=== PATIENT | female | born 1990 | race Caucasian/White ===

== ENCOUNTER 2023-10-01 09:46 | Emergency (ER) | payer OTHER, SELFPAY ==
[2023-10-01 09:52] VITALS: BP 119/78
--- NOTE | 2023-10-01 12:29 | ED.GENMED ---
History of Present Illness
General
Chief Complaint: Breathing Problem
Source: patient
Exam Limitations: none
Time Seen by Provider: 10/01/23 12:05
Nursing documentation reviewed up to this point in time: agreed with
Travel History
Have you had any contact with someone who has COVID-19?: No
Do you have any symptoms of coronavirus? Fever > 100 degrees, chills, cough, shortness of breath, sore throat, loss of taste or smell, muscle aches, or headache?: No
History of Present Illness
History of Present Illness:
Patient to ED with complaint of fever, chills, SOB, CP since 3AM . Denies n/v/d. No cough. States she has completed 3 nebulizer treatments today without improvement. Brought self to ED for eval.
Past History
Past History
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
ED Past Surgical History: Orthopedic (Left ankle surgery), Tonsilectomy and Other (Iliac stent left)
Social History
Tobacco: Non-smoker
Alcohol: Occasional
Drug: None
Personal: Single
Living: alone
Employment: Employed
Family History
Family History: Other (Noncontributory)
Review of Systems
Review of Systems
Allergies reviewed?: Yes
All Other Systems: ROS reviewed and negative except as documented in HPI and ROS
Constitutional: Reports fever, fatigue and chills
EENT: Reports no symptoms
Respiratory: Reports trouble breathing
Cardiac: Reports chest pain
ABD/GI: Reports no symptoms
: Reports no symptoms
Musculoskeletal: Reports no symptoms
Skin: Reports no symptoms
Neurological: Reports weakness
Psychiatric: Reports no symptoms
Phy Exam
General Physical Exam
General Presentation: well appearing and no apparent distress
General age: appears stated age
General Skin: warm and dry
General Habitus: normal
General Mental: alert
Cardiovascular Exam
Cardiovascular Exam: regular rate/rhythm and no edema
Pulmonary Exam
Pulmonary Exam: lungs clear, no respiratory distress and chest non tender
Musculoskeletal Exam
Musculoskeletal Exam: full ROM and neuro vasc intact
Skin Exam
Skin Exam: normal color, warm/dry and no rash
Psychiatric Exam
Psychiatric Exam: normal mood/affect
Course
Orders/Labs/Results
Orders:
Orders
10/01/23 12:27
Electrocardiogram (*1) Urgent
Reason for Study: Chest Pain
EKG- Treatment ONCE
CR Chest - 2 Views Urgent
Comment:
Reason For Exam: SOB
10/01/23 12:28
0.9% Sodium Chloride 1000 ml [Nss] 1,000 ml IV BOLUS
10/01/23 12:52
COVID-19 Antigen Urgent
Source: Nasal Swab
Complete Blood Count/With Diff Urgent
Comprehensive Metabolic Panel Urgent
Troponin I Urgent
Influenza A+B Rapid Molecular Urgent
[facility] Source: Nasal Swab
Specimen Description:
10/01/23 14:08
RSV [Respiratory Syncytial Virus] Urgent
[facility] Source: Nasalpharynx
Specimen Description:
Date Specimen was Collected: 10/01/23
Time Specimen was Collected: 14:07
Abnormal Lab Results
10/01/23
12:52
WBC 15.6 H 10^3/uL
(4.8-10.8)
Abs Immat Gran (auto) 0.1 H 10^3/uL
(0-0.05)
Absolute Neuts (auto) 12.8 H 10^3/uL
(1.4-6.5)
Absolute Monos (auto) 1.2 H 10^3/uL
(0.1-0.6)
Neutrophils % 82.3 H %
(42.2-75.2)
Lymphocytes % 9.2 L %
(20.5-51.1)
Total Bilirubin 2.1 H mg/dl
(0.2-1.3)
10/01/23 12:52
10/01/23 12:52
Vital Signs
Initial and Last Documented VS:
Initial Vital Signs
Temp Pulse Resp BP Pulse Ox
98.9 F 115 18 119/78 97
10/01/23 09:52 10/01/23 09:52 10/01/23 09:52 10/01/23 09:52 10/01/23 09:52
Last Documented Vital Signs
Temp Pulse Resp BP Pulse Ox
98.9 F 101 29 110/68 95
10/01/23 12:56 10/01/23 15:00 10/01/23 15:00 10/01/23 15:00 10/01/23 15:00
*Radiology
Radiology exam reviewed: radiology read reviewed
*Pulse Oximetry
Patient hypoxic: no
*EKG
Interpretation: normal
Rate: normal
Rhythm: sinus
*Critical Care Note
Total Time (30-74mins, 75-104mins- exclusive of procedures): Not Applicable
Update Note
Update Note:
Labs, cxr, ekg reviewed with patient. No concerning findings on exam. PUlse ox remains at 99% RA. Patient is discharged home and will follow up with PCP in AM
ED Attending Note
-
Portions of this chart may have been created with voice recognition software.� Occasional wrong word or��sound alike� substitutions may have occurred due to the inherent limitations of voice recognition software.
Discharge Plan
Departure
Patient Disposition: Home (Routine Discharge)
Date of Disposition: 10/01/23
Time of Disposition: 15:03
Patient with high blood pressure during this ER visit?: No
Condition: Good
Covid-19: Not Applicable
Discharge Problem:
Shortness of breath
Instructions: Shortness of Breath (Dyspnea) (DC)
Prescriptions:
No Action
Ubrelvy 100 mg Tablet
100 mg PO .3X WEEKLY PRN (Reason: migraine)
Mirena 21 mcg/24 hours (8 yrs) 52 mg Intrauterine Device
1 device INTRAUTERINE ONCE
gabapentin 600 mg Tablet
600 mg PO TID
ipratropium-albuterol 0.5 mg-3 mg(2.5 mg base)/3 mL Solution For Nebulization
3 ml INHALATION R Q4 PRN (Reason: sob/wheezing)
famotidine 40 mg Tablet
40 mg PO HS
clopidogrel [Plavix] 75 mg Tablet
75 mg PO DAILY
tramadol 50 mg Tablet
50 mg PO Q4H PRN (Reason: moderate pain)
Patient Comments:
02/06/2023: last filled 12/21/21, 35 tabs [facility] days [facility]
ondansetron 8 mg Tablet,Disintegrating
8 mg PO Q8H PRN (Reason: nausea)
lorazepam 0.5 mg Tablet
0.5 mg PO TID
Patient Comments:
02/24/2023: last filled 02/20/23, 30 tabs for 30 days from [facility]
pantoprazole 40 mg Tablet,Delayed Release (Dr/Ec)
40 mg PO DAILY
vitamin B complex Capsule
1 cap PO HS
escitalopram oxalate [Lexapro] 20 mg Tablet
20 mg PO DAILY
eletriptan 40 mg Tablet
40 mg PO . DIRECTED PRN (Reason: headache)
Rx Instructions:
TAKE 1 TABLET NEEDED FOR HEADACHE MAY REPEAT AFTER 2 HOUR MAX, 1 TAB TWICE A DAY, 3 TIMES PER WEEK
coQ10 (ubiquinol) 200 mg Capsule
300 mg PO HS
Xarelto 20 mg Tablet
20 mg PO DAILY
multivitamin Tablet
1 tab PO DAILY
ferrous sulfate 325 mg (65 mg iron) Tablet
325 mg PO DAILY
ergocalciferol (vitamin D2) 1,250 mcg (50,000 unit) capsule
1,250 mcg PO FR
Rx Instructions:
pt mention takes med at hs
calcium carb-mag ox-zinc sulf 333-133-5 mg Tablet
3 tab PO HS
Flovent Diskus 100 mcg/actuation blister with device
1 inh inhalation R BID
Linzess 72 mcg Capsule
72 mcg PO DAILY
metformin 500 mg tablet
1,000 mg PO BID@0800,1700
prednisone 10 mg tablet
10 mg PO DIRECTED Qty: 100 0RF
Rx Instructions:
40mg for 2 days
30 mg for 2 days
20 mg for 2 days
10mg until seen by rheumatology
midodrine 5 mg Tablet
5 mg PO BID
propranolol 10 mg Tablet
10 mg PO BID
levofloxacin 500 mg Tablet
500 mg PO DAILY
aripiprazole [Abilify] 5 mg Tablet
5 mg PO DAILY
Qulipta 60 mg Tablet
60 mg PO DAILY
Referrals:
Brennon Pierce MD [Family Provider] - Tomorrow
Stand Alone Forms: Return to Work
Activity Restrictions/Additional Instructions:
Return to the emergency department immediately for any changes in/worsening of your symptoms.
Interventions
Interventions:
*Risk Screen - Suicide Last Done: 10/01/23 09:52
*General Assessment Last Done: 10/01/23 12:32
*Neglect/Abuse Screening Last Done: 10/01/23 09:52
ED- Fall Risk Assessment Last Done: 10/01/23 12:56
*ED COVID-19 Vaccine History Last Done: 10/01/23 09:52
ED- Cardiac Assessment Last Done: 10/01/23 12:55
ED- Pulmonary Assessment Last Done: 10/01/23 12:55
[2023-10-01 12:32] VITALS: BMI 37.0
[2023-10-01 12:35] VITALS: BP 94/60
[2023-10-01] MEDS: NSS 1000 IV (12:50)
[2023-10-01 13:00] LABS: % Basophils 0.3 % (0-2); % Eosinophils 0.4 % (0-6); % Immature Granulocytes 0.4 % (0-0.5); % Lymphocytes 9.2 % (20.5-51.1); % Monocytes 7.4 % (1.7-9.3); % Neutrophils 82.3 % (42.2-75.2); Absolute Eosinophils 0.1 10^3/uL (0-0.7); Absolute Immature Granulocytes 0.1 10^3/uL (0-0.05); Absolute Lymphocytes 1.4 10^3/uL (1.2-3.4); Absolute Monocytes 1.2 10^3/uL (0.1-0.6); Absolute Neutrophils 12.8 10^3/uL (1.4-6.5); Hematocrit 37.8 % (37.0-47.0); Mean Corp Hgb Conc. 34.4 g/dL (33.0-37.0); Mean Corpuscular Hgb 28.2 pg (27.0-31.0); Mean Platelet Volume 9.1 fL (7.4-10.4); Nucleated Red Blood Cells % 0 %; Platelet Count 320 10^3/uL (130-400); Red Blood Cell Count 4.61 10^6/uL (4.20-5.40); Red Cell Dist. Width 13.3 % (11.5-14.5); White Blood Cell Count 15.6 10^3/uL (4.8-10.8)
[2023-10-01 13:18] LABS: ALT (SGPT) 13 U/L (0-35); AST (SGOT) 20 U/L (14-36); Albumin 3.7 g/dl (3.5-5.0); Alkaline Phosphatase 101 U/L (38-126); Blood Urea Nitrogen 14 mg/dl (7-17); Calcium 8.9 mg/dl (8.4-10.2); Carbon Dioxide 27 mmol/L (22-30); Chloride 101 mmol/L (98-107); Estimated Creatinine Clearance > 125 ml/min; Glucose 90 mg/dl (70-99); Potassium 3.7 mmol/L (3.5-5.1); Sodium 137 mmol/L (135-145); Total Bilirubin 2.1 mg/dl (0.2-1.3); Total Protein 6.4 g/dl (6.3-8.2); eGFR > 60.00
[2023-10-01 13:24] LABS: COVID-19 Antigen Negative (Negative)
[2023-10-01 13:29] LABS: Troponin I < 0.012 ng/ml
[2023-10-01 14:00] VITALS: BP 97/63
[2023-10-01 15:00] VITALS: BP 110/68
== END 2023-10-01 15:15 | disposition home or self-care (01) ==
LOC: EMR 09:46
PROVIDERS: Nurse Practitioner; EMERGENCY PHYSICIAN Emergency Medicine; FAMILY PHYSICIAN Family Medicine
DX: R06.02 Shortness of breath (principal); R50.9 Fever, unspecified; R53.83 Other fatigue; R07.9 Chest pain, unspecified; R53.1 Weakness; Z11.52 Encounter for screening for COVID-19
CPT/HCPCS: 99285; 96360; 71046; 80053; 84484; 85025; 87502; 87807; 87811; 93005

== ENCOUNTER 2023-12-01 16:38 | Emergency (ER) | payer BC, SELFPAY ==
[2023-12-01 16:44] VITALS: BP 119/82
[2023-12-01 17:03] LABS: % Basophils 0.4 % (0-2); % Eosinophils 1.7 % (0-6); % Immature Granulocytes 0.4 % (0-0.5); % Lymphocytes 30.4 % (20.5-51.1); % Monocytes 6.9 % (1.7-9.3); % Neutrophils 60.2 % (42.2-75.2); Absolute Eosinophils 0.2 10^3/uL (0-0.7); Absolute Lymphocytes 3.1 10^3/uL (1.2-3.4); Absolute Monocytes 0.7 10^3/uL (0.1-0.6); Absolute Neutrophils 6.1 10^3/uL (1.4-6.5); Hematocrit 39.8 % (37.0-47.0); Hemoglobin 13.8 g/dL (12.0-16.0); Mean Corp Hgb Conc. 34.7 g/dL (33.0-37.0); Mean Corpuscular Hgb 28.4 pg (27.0-31.0); Mean Corpuscular Volume 81.9 fL (81.0-99.0); Mean Platelet Volume 9.3 fL (7.4-10.4); Nucleated Red Blood Cells % 0 %; Platelet Count 344 10^3/uL (130-400); Red Blood Cell Count 4.86 10^6/uL (4.20-5.40); Red Cell Dist. Width 13.4 % (11.5-14.5); White Blood Cell Count 10.1 10^3/uL (4.8-10.8)
[2023-12-01 17:17] LABS: HCG, Serum Qualitative Screen Negative
[2023-12-01 17:20] LABS: ALT (SGPT) 32 U/L (0-35); AST (SGOT) 33 U/L (14-36); Albumin 4.4 g/dl (3.5-5.0); Alkaline Phosphatase 118 U/L (38-126); Blood Urea Nitrogen 16 mg/dl (7-17); Calcium 9.1 mg/dl (8.4-10.2); Carbon Dioxide 28 mmol/L (22-30); Chloride 105 mmol/L (98-107); Glucose 109 mg/dl (70-99); Potassium 3.6 mmol/L (3.5-5.1); Sodium 137 mmol/L (135-145); Total Bilirubin 1.8 mg/dl (0.2-1.3); Total Protein 7.5 g/dl (6.3-8.2); eGFR > 60.00
[2023-12-01 17:31] LABS: Troponin I < 0.012 ng/ml
--- NOTE | 2023-12-01 18:36 | ED.GENMED ---
History of Present Illness
General
Chief Complaint: Chest Pain
Source: patient
Time Seen by Provider: 12/01/23 18:25
Travel History
Have you had any contact with someone who has COVID-19?: No
Do you have any symptoms of coronavirus? Fever > 100 degrees, chills, cough, shortness of breath, sore throat, loss of taste or smell, muscle aches, or headache?: No
History of Present Illness
History of Present Illness:
33-year-old female with past medical history of migraines, PE, DVT, May Thurner syndrome, type 2 diabetes, unspecified chest pain presenting to the emergency department for evaluation of chest pain described to be sternal radiating towards the left
breast, aching sensation, constant without any exacerbating or alleviating factors accompanied with headache and sensation of lightheadedness that all began around 1 PM and has been pretty persistent. Patient notes that she is currently scheduled
to undergo a workup with cardiology for a stress test and MRI of the heart within the coming month for this unspecified chest pain. Patient is on both Plavix and Xarelto due to her cardiopulmonary history. She notes that she attempted her usual
migraine medications but without any relief. Denies any fevers or recent illnesses, no other new or different symptoms than her usual chronic conditions.
Past History
Past History
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
ED Past Surgical History: Orthopedic (Left ankle surgery), Tonsilectomy and Other (Iliac stent left)
Social History
Tobacco: Non-smoker
Alcohol: Occasional
Drug: None
Personal: Single
Living: alone
Employment: Employed
Family History
Family History: Other (Noncontributory)
Review of Systems
Review of Systems
All Other Systems: ROS reviewed and negative except as documented in HPI and ROS
Phy Exam
Physical Exam
Physical Exam:
GENERAL: Alert , in no apparent distress
EYE: clear conjunctiva b/l
HEAD: NCAT
Neck: Supple, no meningismus
ENT: o/p clr, mmm.
CARDIAC: Regular rate and rhythm, no murmur.
LUNGS: Clear breath sounds bilaterally, no acute respiratory distress, no wheezes/rales/rhonchi, no chest wall tenderness
ABDOMEN: Soft, without focal tenderness, no r/g, no cvat
NEUROLOGICAL: Alert and oriented
SKIN: Warm and dry, skin intact.
MUSCULOSKELETAL: No edema, well perfused.
PSYCH: Normal and appropriate interaction.
Scores
Heart Failure Risk
Heart Failure Risk Score: Not Applicable
Heart Score for Chest Pain Patients
STEMI patient?: No
History: Slightly or Non-Suspicious
ECG: Normal
Age: </= 45 years
Risk Factors: No Risk Factors
Troponin: </= Normal Limit
Heart Score for Chest Pain Patients: 0
Heart Score Risk: 2.5% MACE over next 6 weeks
Withdrawal Assessment of Alcohol
Withdrawal Assessment Completed?: Not applicable
Course
Orders/Labs/Results
Orders:
Orders
12/01/23 16:46
Electrocardiogram (*1) Urgent
Reason for Study: Chest Pain
EKG- Treatment ONCE
Test Result ONCE
12/01/23 16:54
Complete Blood Count/With Diff Urgent
Comprehensive Metabolic Panel Urgent
HCG, Serum Qualitative Screen Urgent
Troponin I Urgent
12/01/23 18:35
0.9% Sodium Chloride 1000 ml [Nss] 1,000 ml IV BOLUS
Diphenhydramine [Benadryl] 25 mg IV NOW STA
Metoclopramide [Reglan] 10 mg IV NOW STA
Abnormal Lab Results
12/01/23
16:54
Absolute Monos (auto) 0.7 H 10^3/uL
(0.1-0.6)
Glucose 109 H mg/dl
(70-99)
Total Bilirubin 1.8 H mg/dl
(0.2-1.3)
12/01/23 16:54
12/01/23 16:54
Vital Signs
Initial and Last Documented VS:
Initial Vital Signs
Temp Pulse Resp BP Pulse Ox
98.6 F 85 18 119/82 97
12/01/23 16:44 12/01/23 16:44 12/01/23 16:44 12/01/23 16:44 12/01/23 16:44
Last Documented Vital Signs
Temp Pulse Resp BP Pulse Ox
98.6 F 82 26 115/62 97
12/01/23 16:44 12/01/23 20:00 12/01/23 20:00 12/01/23 18:42 12/01/23 20:00
MDM/Problems Addressed
Differential Diagnosis Includes:
Acute on chronic chest pain but less concern for ACS, POTS, migraine, less concern for infectious etiology, I do not have concern for PE given patient is hemodynamically stable and already anticoagulated both Plavix and Xarelto
MDM/Problems Addressed:
33-year-old female presenting emergency department for evaluation of chest pain but also noted migraine headache. Overall patient's symptoms do not seem to be suggestive of ACS however given her right abnormal medical history combined with her
unspecified etiology for her chest pain will perform chest pain workup. Labs were initiated from triage and show a negative troponin and are otherwise unremarkable. EKG is nonischemic. Will order chest x-ray. Reglan Benadryl and fluids ordered
for migraine treatment as this does help patient in the past. I do anticipate discharge home and continued outpatient workup.
Chronic conditions affecting care: Neurological disorder
Acute Exacerbation and/or Progression of Chronic Illness: Neurological disorder
*Pulse Oximetry
Patient hypoxic: no
*EKG
Interpreted by ED Provider?: Yes
Comparison EKG: no changes
Heart Rate: 87
Rate: normal
Rhythm: sinus
Ischemia: no ischemia
*[employer] Supervisor Interpretation
Rate: normal
Rhythm: sinus
*Critical Care Note
Total Time (30-74mins, 75-104mins- exclusive of procedures): Not Applicable
Patient Management
Escalation/DeEscalation of care consider admission/obs:
Patient with full resolution of her headache and chest pain. She remains hemodynamically stable. She already has arranged outpatient follow-up with cardiology. She will continue to follow-up as scheduled. Aware of return precautions but
otherwise stable for discharge home.
ED Attending Note
-
Portions of this chart may have been created with voice recognition software.� Occasional wrong word or��sound alike� substitutions may have occurred due to the inherent limitations of voice recognition software.
Discharge Plan
Departure
Patient Disposition: Home (Routine Discharge)
Date of Disposition: 12/01/23
Time of Disposition: 20:13
Patient with high blood pressure during this ER visit?: No
Discharge Problem:
Chest pain, Headache
Instructions: Headache, Adult (DC)
Prescriptions:
No Action
Ubrelvy 100 mg Tablet
100 mg PO .3X WEEKLY PRN (Reason: migraine)
Mirena 21 mcg/24 hours (8 yrs) 52 mg Intrauterine Device
1 device INTRAUTERINE ONCE
gabapentin 600 mg Tablet
600 mg PO TID
ipratropium-albuterol 0.5 mg-3 mg(2.5 mg base)/3 mL Solution For Nebulization
3 ml INHALATION R Q4 PRN (Reason: sob/wheezing)
famotidine 40 mg Tablet
40 mg PO HS
clopidogrel [Plavix] 75 mg Tablet
75 mg PO DAILY
tramadol 50 mg Tablet
50 mg PO Q4H PRN (Reason: moderate pain)
Patient Comments:
02/06/2023: last filled 12/21/21, [facility] tabs [facility]
ondansetron 8 mg Tablet,Disintegrating
8 mg PO Q8H PRN (Reason: nausea)
lorazepam 0.5 mg Tablet
0.5 mg PO TID
Patient Comments:
02/24/2023: last filled 02/20/23, 30 tabs for 30 days from [facility]
pantoprazole 40 mg Tablet,Delayed Release (Dr/Ec)
40 mg PO DAILY
vitamin B complex Capsule
1 cap PO HS
escitalopram oxalate [Lexapro] 20 mg Tablet
20 mg PO DAILY
eletriptan 40 mg Tablet
40 mg PO . DIRECTED PRN (Reason: headache)
Rx Instructions:
TAKE 1 TABLET NEEDED FOR HEADACHE MAY REPEAT AFTER 2 HOUR MAX, 1 TAB TWICE A DAY, 3 TIMES PER WEEK
coQ10 (ubiquinol) 200 mg Capsule
300 mg PO HS
Xarelto 20 mg Tablet
20 mg PO DAILY
multivitamin Tablet
1 tab PO DAILY
ferrous sulfate 325 mg (65 mg iron) Tablet
325 mg PO DAILY
ergocalciferol (vitamin D2) 1,250 mcg (50,000 unit) capsule
1,250 mcg PO FR
Rx Instructions:
pt mention takes med at hs
calcium carb-mag ox-zinc sulf 333-133-5 mg Tablet
3 tab PO HS
Flovent Diskus 100 mcg/actuation blister with device
1 inh inhalation R BID
Linzess 72 mcg Capsule
72 mcg PO DAILY
metformin 500 mg tablet
1,000 mg PO BID@0800,1700
prednisone 10 mg tablet
10 mg PO DIRECTED Qty: 100 0RF
Rx Instructions:
40mg for 2 days
30 mg for 2 days
20 mg for 2 days
10mg until seen by rheumatology
midodrine 5 mg Tablet
5 mg PO BID
propranolol 10 mg Tablet
10 mg PO BID
levofloxacin 500 mg Tablet
500 mg PO DAILY
aripiprazole [Abilify] 5 mg Tablet
5 mg PO DAILY
Qulipta 60 mg Tablet
60 mg PO DAILY
Referrals:
Brennon Pierce MD [Family Provider] -
Interventions
Interventions:
*Risk Screen - Suicide Last Done: 12/01/23 19:07
*General Assessment Last Done: 12/01/23 19:07
*Neglect/Abuse Screening Last Done: 12/01/23 19:07
ED- Fall Risk Assessment Last Done: 12/01/23 19:22
*ED COVID-19 Vaccine History Last Done: 12/01/23 19:07
ED- Cardiac Assessment Last Done: 12/01/23 19:22
Discharge Date and Time
Print Language: URDU
[2023-12-01 18:42] VITALS: BP 115/62
[2023-12-01] MEDS: NSS 1000 IV (19:14)
[2023-12-01] MEDS: BENADRYL 25 MG IV (19:14)
[2023-12-01] MEDS: REGLAN 10 MG IV (19:15)
[2023-12-01 20:07] VITALS: BP 113/77
== END 2023-12-01 20:21 | disposition home or self-care (01) ==
LOC: EMR 16:38
PROVIDERS: Emergency Medicine; EMERGENCY PHYSICIAN Emergency Medicine; FAMILY PHYSICIAN Family Medicine
DX: G43.909 Migraine, unspecified, not intractable, without status migrainosus (principal); R07.9 Chest pain, unspecified
CPT/HCPCS: 99284; 96374; 96375; 96361; 80053; 84484; 84703; 85025; 93005

== ENCOUNTER → 2024-01-28 09:00 | Outpatient (REF) | payer BC, SELFPAY | LOC: WDC 09:00 | PROVIDERS: ATTENDING PHYSICIAN Surgery; FAMILY PHYSICIAN Family Medicine | DX: N63.23 Unspecified lump in the left breast, lower outer quadrant (principal); N64.52 Nipple discharge; M33.10 Other dermatomyositis, organ involvement unspecified | CPT/HCPCS: 76642; 77062; 77066 ==

== ENCOUNTER 2024-02-24 12:49 | Emergency (ER) | payer OTHER, SELFPAY ==
[2024-02-24 12:53] VITALS: BP 114/86
--- NOTE | 2024-02-24 13:30 | ED.GENMED ---
History of Present Illness
General
Chief Complaint: Headache
Source: patient
Exam Limitations: none
Time Seen by Provider: 02/24/24 13:25
Nursing documentation reviewed up to this point in time: agreed with
History of Present Illness
History of Present Illness:
33 yo female with h/o dermatomyositis, asthma, IDDM, PCOS, POTS, May-Thurner syndrome, mitral valve regurgitation, chronic migraines. Typical migraine is right side head and behind right eye, this is different, states headache goes from the back of
her neck up and over her head to her temples since 02/14, all day every day, seems to be getting worse in the past few days, no history of trauma. Vomiting intermittently, more in past 3 days. Last emesis 4 a.m. today. She has tried everything from
her home cocktail of Benadryl/Excedrin/baby aspirin, Tylenol, sumatriptan hand maxed out 3 times this week, Qulipta and Zofran all with no relief. Denies change in vision, CP, SOB, Abdominal pain. Denies weakness, numbness in extremities. She does
feel nauseous. She's had no trouble ambulating.
She notified her Neurologist in the beginning, he referred her to her PCP who referred her back to her Neurologist who is on vacation this week.
Past History
Past History
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
ED Past Surgical History: Orthopedic (Left ankle surgery), Tonsilectomy and Other (Iliac stent left)
Social History
Tobacco: Non-smoker
Alcohol: Occasional
Drug: None
Personal: Single
Living: with family
Employment: Employed
Family History
Family History: Other (Noncontributory)
Review of Systems
Review of Systems
Allergies reviewed?: Yes
All Other Systems: ROS reviewed and negative except as documented in HPI and ROS
Constitutional: Denies fever
EENT: Reports no symptoms
Respiratory: Denies trouble breathing
Cardiac: Denies chest pain
ABD/GI: Reports nausea and vomiting; Denies abdominal pain or diarrhea
: Denies dysuria or difficulty voiding
Musculoskeletal: Reports no symptoms
Skin: Reports no symptoms
Neurological: Reports headache; Denies dizzy, weakness or numbness
Phy Exam
Physical Exam
Physical Exam:
GENERAL: No acute distress. A&Ox3.
CONSTITUTIONAL: Afebrile.
EYES: PERRL, conjunctivae normal
Neck: Supple
ENMT: moist mucus membranes, Pharynx nl
RESPIRATORY: Regular respirations, nonlabored, lungs clear.
CARDIOVASCULAR: Regular rate and rhythm, no murmurs, no rubs.
GI: Soft, nontender, normal BS
MUSCULOSKELETAL: Moves with ease. Well perfused.
SKIN: Warm, dry, pink
PSYCH: Depressed l mood and affect. Well kept, interactive and appropriate
NEUROLOGIC: Awake, alert and oriented. Speech clear. Cranial nerves II through XII intact. Cerebellum intact. No focal neurological deficits
Course
Orders/Labs/Results
Orders:
Orders
02/24/24 13:31
IV Insert/Care/Rem.- Treatment PRN
0.9% Sodium Chloride 1000 ml [Nss] 1,000 ml IV BOLUS
Metoclopramide [Reglan] 10 mg IV NOW STA
02/24/24 13:35
Test Result ONCE
02/24/24 13:36
Electrocardiogram (*1) Urgent
Reason for Study: QTc Monitoring
EKG- Treatment ONCE
02/24/24 13:37
Diphenhydramine [Benadryl] 50 mg IV NOW STA
02/24/24 13:46
CT Head W/o Iv Contrast Urgent
Comment:
Reason For Exam: atypical migraine, on Xarelto
02/24/24 13:58
Complete Blood Count/With Diff Urgent
Comprehensive Metabolic Panel Urgent
Erythrocyte Sed Rate Urgent
HCG, Serum Qualitative Screen Urgent
TSH Urgent
Comment: TSH ADDED ON BY FLOOR 3:10PM 02-24-24
02/24/24 15:07
Magnesium Sulfate 2 Gram/50 ml [Magnesium Sulfate] 2 gram in 50 ml IV NOW
02/24/24 15:10
Add On- LAB Urgent
Tests Added?: ESR, TSH
02/24/24 15:33
NEUROLOGY CONSULT Routine
Consulting Provider: Mayito Patino
Was physician already notified: Yes
Reason for consult: intractable atypical migraine
02/24/24 16:16
Lacosamide [Vimpat] 100 mg IV NOW STA
02/24/24 16:23
MethylPREDNISolone PF [Solu-Medrol Pf] 40 mg IV NOW STA
02/24/24 16:56
Prochlorperazine [Compazine] 10 mg IV NOW STA
Abnormal Lab Results
02/24/24
13:58
MCV 80.9 L fL
(81.0-99.0)
Absolute Monos (auto) 0.7 H 10^3/uL
(0.1-0.6)
ESR 26 H mm/hour
(0-20)
Carbon Dioxide 31 H mmol/L
(22-30)
02/24/24 13:58
02/24/24 13:58
Vital Signs
Initial and Last Documented VS:
Initial Vital Signs
Temp Pulse Resp BP Pulse Ox
98.6 F 94 14 114/86 96
02/24/24 12:53 02/24/24 12:53 02/24/24 12:53 02/24/24 12:53 02/24/24 12:53
Last Documented Vital Signs
Temp Pulse Resp BP Pulse Ox
98.6 F 90 18 123/90 99
02/24/24 12:53 02/24/24 16:47 02/24/24 16:47 02/24/24 16:47 02/24/24 16:47
MDM/Problems Addressed
Differential Diagnosis Includes:
Atypical migraine, meningitis, brain bleed
MDM/Problems Addressed:
33 yo female with h/o dermatomyositis, asthma, IDDM, PCOS, POTS, May-Thurner syndrome, mitral valve regurgitation, L side ischemic stroke 08/2022, DVT/PE on chronic anticoagulation, chronic migraines. Typical migraine is right side head and behind
right eye, this is different, states headache goes from the back of her neck up and over her head to her temples since 02/14, all day every day, seems to be getting worse in the past few days, no history of trauma. Vomiting intermittently, more in
past 3 days. Last emesis 4 a.m. today. She has tried everything from her home cocktail of Benadryl/Excedrin/baby aspirin, Tylenol, sumatriptan hand maxed out 3 times this week, Qulipta and Zofran all with no relief. Denies change in vision, CP,
SOB, Abdominal pain. Denies weakness, numbness in extremities. She does feel nauseous. She's had no trouble ambulating.
She notified her Neurologist in the beginning, he referred her to her PCP who referred her back to her Neurologist who is on vacation this week.
No meningismus
No focal neurological deficits. However she is on Xarelto and this headache is atypical of her headaches so we will obtain head CT to rule out bleed
I will give Reglan, Benadryl and IV fluids as this has helped her headaches in the past
2:00 PM
Patient has had no relief of her headache
Case discussed with Dr. Webster who recommends Mg+2gm IV and admit. Needs neuro consult.
Dr. Otero's note from 03/24/23 reviewed he recommended the Mg++, Methylprednisolone 60 mg IV. Toradol 30 mg IV(will not give today, on Xarelto). If these do not work, recommended DHE IV with prochlorperazine. Has had atypical headaches in the past.
MRI brain unremarkable.
No neuro deficits, no mental status change, no CN, motor or sensory deficits. Ambulates well with steady gait.
Pt now tells me her Neurologist Dr. Mar at [facility] wants her to call him before 5 p.m. with the treatment she received here.
I called her neurologist office and patient scheduler informs me no one is in the office to speak with, Dr. Mar is at [facility] today and she has no way to get in touch with him
4:[address] unremarkable
Patient states headache is still 9/10. She is laying calmly, eating crackers and appears in no distress. Her mother is sitting at bedside
Case discussed with Dr. Webster who agrees pt needs to be admitted for intractable pain. Patient is now getting methylprednisolone and Vimpat IV
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
She will let them know if the Vimpat worked
Upon discharge patient ambulated out with normal gait.
Chronic conditions affecting care: DM, Neurological disorder (migraines), Psychiatric illness (anxiety, depression) and Other (POTS, Dermatomyositis, May Thurner Syndrome with iliac stent, on Xarelto)
*Critical Care Note
Total Time (30-74mins, 75-104mins- exclusive of procedures): Not Applicable
ED Attending Note
-
Portions of this chart may have been created with voice recognition software.� Occasional wrong word or��sound alike� substitutions may have occurred due to the inherent limitations of voice recognition software.
Discharge Plan
Departure
Patient Disposition: Home (Routine Discharge)
Date of Disposition: 02/24/24
Time of Disposition: 17:00
Patient with high blood pressure during this ER visit?: No
Condition: Fair
Discharge Problem:
Intractable migraine
Instructions: Headache, Adult (DC)
Prescriptions:
No Action
Mirena 21 mcg/24 hr (8 yrs) 52 mg Intrauterine Device
1 device INTRAUTERINE UD
gabapentin 600 mg Tablet
600 mg PO TID
famotidine 40 mg Tablet
40 mg PO DAILY
midodrine 5 mg Tablet
5 mg PO DAILY
olanzapine 10 mg Tablet
10 mg PO DIRECTED PRN (Reason: headache resolution)
Rx Instructions:
pt. instructed to take 0.5 tablet for 4 nights and then increase to 1.5 tablets as needed for headache resolution.
clopidogrel 75 mg Tablet
75 mg PO QPM
omeprazole 40 mg Capsule,Delayed Release(Dr/Ec)
40 mg PO DAILY
acetaminophen [Tylenol Extra Strength] 500 mg Tablet
1,000 mg PO DAILYPRN PRN (Reason: mild pain)
ondansetron 8 mg Tablet,Disintegrating
8 mg PO Q8H PRN (Reason: nausea/vomiting)
ergocalciferol (vitamin D2) 1,250 mcg (50,000 unit) Capsule
1,250 mcg PO FR@0800
insulin lispro [Humalog KwikPen Insulin] 100 unit/mL Insulin Pen
5 unit SC AC
escitalopram oxalate 20 mg Tablet
20 mg PO DAILY
aripiprazole 15 mg Tablet
15 mg PO DAILY
insulin glargine [Lantus Solostar U-100 Insulin] 100 unit/mL (3 mL) Insulin Pen
10 unit SC HS
Xarelto 20 mg Tablet
20 mg PO QPM
prednisone 20 mg Tablet
40 mg PO NOON
rizatriptan 10 mg Tablet
10 mg PO DAILYPRN PRN (Reason: migraines)
Qulipta 100 mg tablet
PO DAILY
Patient Comments:
02/24/2024, pt. gets specially compounded at [facility] in [place] but does not know the name of it. patient ecw has her on 60mg daily on 02/09/2024
Referrals:
Your, Neurologist [Other] - Tomorrow
Brennon Pierce MD [Family Provider] -
Activity Restrictions/Additional Instructions:
As we discussed, call your Neuro SYSTEMS SECURITY CONSULTANT tomorrow, let her know if the Vimpat worked.
You were given Benadryl and Reglan, IV fluids, then Magnesium 2 grams, then Methylprednisolone 40 mg then Vimpat.
Interventions
Interventions:
*Risk Screen - Suicide Last Done: 02/24/24 12:53
*General Assessment Last Done: 02/24/24 12:53
*Neglect/Abuse Screening Last Done: 02/24/24 14:12
ED- Fall Risk Assessment Last Done: 02/24/24 14:12
*Nursing Disposition Last Done: 02/24/24 17:34
ED- Neurological Assessment Last Done: 02/24/24 14:08
Discharge Date and Time
Discharge Date/Time: 02/24/24 17:20
Print Language: MOSOTHO
[2024-02-24] MEDS: NSS 1000 IV (13:59)
[2024-02-24] MEDS: REGLAN 10 MG IV (14:00)
[2024-02-24] MEDS: BENADRYL 50 MG IV (14:00)
[2024-02-24 14:13] LABS: % Basophils 0.5 % (0-2); % Eosinophils 2.8 % (0-6); % Immature Granulocytes 0.3 % (0-0.5); % Lymphocytes 28.9 % (20.5-51.1); % Monocytes 7.9 % (1.7-9.3); % Neutrophils 59.6 % (42.2-75.2); Absolute Eosinophils 0.2 10^3/uL (0-0.7); Absolute Lymphocytes 2.5 10^3/uL (1.2-3.4); Absolute Monocytes 0.7 10^3/uL (0.1-0.6); Absolute Neutrophils 5.1 10^3/uL (1.4-6.5); Hematocrit 42.9 % (37.0-47.0); Hemoglobin 14.7 g/dL (12.0-16.0); Mean Corp Hgb Conc. 34.3 g/dL (33.0-37.0); Mean Corpuscular Hgb 27.7 pg (27.0-31.0); Mean Corpuscular Volume 80.9 fL (81.0-99.0); Mean Platelet Volume 9.2 fL (7.4-10.4); Nucleated Red Blood Cells % 0 %; Platelet Count 342 10^3/uL (130-400); Red Cell Dist. Width 12.9 % (11.5-14.5); White Blood Cell Count 8.6 10^3/uL (4.8-10.8)
[2024-02-24 14:25] LABS: HCG, Serum Qualitative Screen Negative
[2024-02-24 14:28] LABS: ALT (SGPT) 21 U/L (0-35); AST (SGOT) 27 U/L (14-36); Albumin 4.6 g/dl (3.5-5.0); Alkaline Phosphatase 109 U/L (38-126); Blood Urea Nitrogen 15 mg/dl (7-17); Calcium 9.5 mg/dl (8.4-10.2); Carbon Dioxide 31 mmol/L (22-30); Chloride 103 mmol/L (98-107); Glucose 98 mg/dl (70-99); Potassium 4.1 mmol/L (3.5-5.1); Sodium 141 mmol/L (135-145); Total Bilirubin 1.1 mg/dl (0.2-1.3); Total Protein 7.7 g/dl (6.3-8.2); eGFR > 60.00
[2024-02-24 14:49] LABS: Erythrocyte Sed Rate 26 mm/hour (0-20)
[2024-02-24] MEDS: MAGNESIUM SULFATE 50 IV (15:21)
--- NOTE | 2024-02-24 15:56 | PHANOTE ---
02/24/2024, med rec tech, spoke to pt. to obtain their med. history; pt. gets Qulipta 100 mg specially compounded at a speciality pharmacy in [place] but is unsure of the name of it; pt. states to take Rizatriptan 10 mg Dailyprn for migraines
but could not confirm with another source.
[2024-02-24] MEDS: VIMPAT 100 MG IV (16:24)
--- NOTE | 2024-02-24 16:36 | HPS.HSE ---
Family Physician
-
Family Physician: Brennon Pierce
Chief Complaint
-
Intractable migraine
History of Present Illness
33-year-old female complaining of right-sided headache behind her right eye and going from the back of her neck up over the right side of her muslim since 623. She reports the headache has been getting worse over the past few days along with
vomiting intermittently. She has tried 3 doses of Imitrex. She is also tried home Benadryl, Excedrin, baby aspirin, Tylenol, Qulipta and Zofran with no relief. She was referred to her neurologist by her PCP but he is currently on vacation for the
week. The patient follows with neurology Dr. Mar at [facility]
Past medical history of chronic migraines, May-Thurner syndrome, POTS, PCOS, IDDM, dermatomyositis, mitral valve regurg, asthma, anxiety, depression CVA with right-sided weakness August 2022, PE/DVT, renal calculi, iliac stent left
Medical History
Past Medical History
Past Medical History: Reports Other
Additional Past Medical History:
May Thurner syndrome with a left iliac stent placed in June 2022
Dermatomyositis
Lupus
Vitamin D deficiency
DVT/PE
CVA in August 2022
Restrictive lung disease/asthma
Fatty liver
Migraines
History of Lyme's disease
Depression/anxiety
Kidney stones
Broken ankle
Pott's Syndrome
DM-II
Past Surgical History: Reports Other
Additional Past Surgical History:
Left iliac stent placement
Tonsillectomy
Muscle biopsy
Social History
Tobacco: Non-smoker
Alcohol: Occasional
Drug: None
Living: With Family
Family History
Family History: Adopted
Allergies / Home Medications
Allergies reflects when Allergies were last updated in [facility].
Home Medications with original date entered in [facility]
Allergy/Medication List:
Allergies
Allergy/AdvReac Type Severity Reaction Status Date / Time
amoxicillin Allergy Unknown Verified 12/01/23 18:58
doxycycline Allergy Unknown Verified 12/01/23 18:58
Penicillins Allergy Unknown Verified 12/01/23 18:58
Home Medications
Qulipta mg PO DAILY 02/24/24
acetaminophen 500 mg tablet (Tylenol Extra Strength) 1,000 mg PO DAILYPRN PRN mild pain 02/24/24
aripiprazole 15 mg tablet 15 mg PO DAILY 02/24/24
clopidogrel 75 mg tablet 75 mg PO QPM 02/24/24
ergocalciferol (vitamin D2) 1,250 mcg (50,000 unit) capsule 1,250 mcg PO FR@0800 02/24/24
escitalopram oxalate 20 mg tablet 20 mg PO DAILY 02/24/24
famotidine 40 mg tablet 40 mg PO DAILY 02/24/24
gabapentin 600 mg tablet 600 mg PO TID 02/24/24
insulin glargine 100 unit/mL (3 mL) subcutaneous pen (Lantus Solostar U-100 Insulin) 10 unit SC HS 02/24/24
insulin lispro 100 unit/mL subcutaneous pen (Humalog KwikPen (U-100) Insulin) 5 unit SC AC 02/24/24
levonorgestrel 21 mcg/24 hr (up to 8 years) 52 mg intrauterine device (Mirena) 1 device intrauterine UD 02/24/24
midodrine 5 mg tablet 5 mg PO DAILY 02/24/24
olanzapine 10 mg tablet 10 mg PO DIRECTED PRN headache resolution 02/24/24
omeprazole 40 mg capsule,delayed release 40 mg PO DAILY 02/24/24
ondansetron 8 mg disintegrating tablet 8 mg PO Q8H PRN nausea/vomiting 02/24/24
prednisone 20 mg tablet 40 mg PO NOON 02/24/24
rivaroxaban 20 mg tablet (Xarelto) 20 mg PO QPM 02/24/24
rizatriptan 10 mg tablet 10 mg PO DAILYPRN PRN migraines 02/24/24
Physical Exam
Vital Signs
Vital Signs
Temp Pulse Resp BP Pulse Ox
98.6 F 91 18 114/86 96
02/24/24 12:53 02/24/24 14:10 02/24/24 14:10 02/24/24 12:53 02/24/24 12:53
Laboratory Results
-
02/24/24 13:58
02/24/24 13:58
Laboratory Results
Total Bilirubin 1.1 mg/dl (0.2-1.3) 02/24/24 13:58
AST 27 U/L (14-36) 02/24/24 13:58
ALT 21 U/L (0-35) 02/24/24 13:58
Alkaline Phosphatase 109 U/L (38-126) 02/24/24 13:58
Impression/Plan
-
Impression/plan:
Admit to MedSurg
#Intractable migraine
#Hx chronic migraines
-No relief with Imitrex x 3 at home
-Vimpat 100 mg given in ER
-Magnesium 2 g rider given in ER
-Methylprednisone 40 mg IV given in ER with 10 mg Reglan, 50 mg Benadryl
-Continue Reglan as needed, Benadryl as needed
-Consult neurology
-Patient follows with Dr. Mar neurology at [facility]
CT head: No acute intracranial abnormality
#May Thurner syndrome
#PE/DVT
#Left iliac stent
-Continue Xarelto 20 mg every afternoon, Plavix 75 mg daily
#Hx CVA with right-sided weakness August 2022
Continue Plavix 75 mg every afternoon
#IDDM
Accu-Cheks SSI, check HgbA1c
Continue Lantus 10 units subcu at bedtime, Humalog 5 units with meals plus sliding scale
#POTS syndrome
-Continue midodrine 5 mg daily
#Asthma�no acute exacerbation
Anxiety/depression
-Continue Lexapro 20 mg daily
Vitamin D deficiency continue vitamin D supplement
Other PMH:
PCOS
Dermatomyositis
Renal calculi
Mitral valve regurg
DVT prophylaxis
Continue PLACEMENT OFFICER Xarelto
[2024-02-24 16:47] VITALS: BP 123/90
== END 2024-02-24 17:20 | disposition home or self-care (01) ==
LOC: EMR 12:49
PROVIDERS: Registered Nurse; CONSULT PHYSICIAN Psychiatry & Neurology Neurology; EMERGENCY PHYSICIAN Emergency Medicine; FAMILY PHYSICIAN Family Medicine
DX: G43.009 Migraine without aura, not intractable, without status migrainosus (principal); J45.909 Unspecified asthma, uncomplicated; E11.9 Type 2 diabetes mellitus without complications; E28.2 Polycystic ovarian syndrome; G90.A Postural orthostatic tachycardia syndrome [POTS]; I34.0 Nonrheumatic mitral (valve) insufficiency; Z79.01 Long term (current) use of anticoagulants
CPT/HCPCS: 99284; 96365; 96375; 70450; 80053; 84443; 84703; 85025; 85652; 93005; C9254

== ENCOUNTER 2024-04-28 16:06 | Emergency (ER) | payer OTHER, SELFPAY ==
[2024-04-28 16:12] VITALS: BP 118/80
[2024-04-28 16:49] LABS: % Basophils 0.4 % (0-2); % Immature Granulocytes 0.3 % (0-0.5); % Lymphocytes 26.5 % (20.5-51.1); % Monocytes 6.6 % (1.7-9.3); % Neutrophils 65.2 % (42.2-75.2); Absolute Basophils 0.1 10^3/uL (0-0.2); Absolute Eosinophils 0.1 10^3/uL (0-0.7); Absolute Lymphocytes 3.5 10^3/uL (1.2-3.4); Absolute Monocytes 0.9 10^3/uL (0.1-0.6); Absolute Neutrophils 8.5 10^3/uL (1.4-6.5); Hematocrit 41.9 % (37.0-47.0); Hemoglobin 14.8 g/dL (12.0-16.0); Mean Corp Hgb Conc. 35.3 g/dL (33.0-37.0); Mean Corpuscular Hgb 28.7 pg (27.0-31.0); Mean Corpuscular Volume 81.4 fL (81.0-99.0); Mean Platelet Volume 9.9 fL (7.4-10.4); Nucleated Red Blood Cells % 0 %; Platelet Count 331 10^3/uL (130-400); Red Blood Cell Count 5.15 10^6/uL (4.20-5.40); Red Cell Dist. Width 13.2 % (11.5-14.5)
[2024-04-28 17:09] LABS: HCG, Serum Qualitative Screen Negative
[2024-04-28 17:17] LABS: ALT (SGPT) 25 U/L (0-35); AST (SGOT) 32 U/L (14-36); Albumin 4.7 g/dl (3.5-5.0); Alkaline Phosphatase 111 U/L (38-126); Blood Urea Nitrogen 15 mg/dl (7-17); Calcium 9.6 mg/dl (8.4-10.2); Carbon Dioxide 21 mmol/L (22-30); Chloride 103 mmol/L (98-107); Glucose 102 mg/dl (70-99); Potassium 4.2 mmol/L (3.5-5.1); Sodium 143 mmol/L (135-145); Total Bilirubin 1.8 mg/dl (0.2-1.3); Total Protein 7.7 g/dl (6.3-8.2); eGFR > 60.00
[2024-04-28 17:22] LABS: Lactic Acid 1.5 mmol/L (0.7-2.0)
[2024-04-28 17:28] LABS: Lipase 137 U/L (23-300)
[2024-04-28 19:00] VITALS: BP 115/72
[2024-04-28 20:06] VITALS: BMI 34.5
--- NOTE | 2024-04-28 21:01 | ED.GENMED ---
Addendum entered and electronically signed by Zachary Evans DO 04/28/24 22:24:
Update
Patient feeling better has remained hemodynamically stable her abdomen is soft and nontender no nausea vomiting no further hematemesis, did offer the patient admission she is concerned about the insurance ramifications of being admitted with a
denied admission which is not unreasonable from her perspective, will discharge with a PPI she has Zofran at home PCP GI follow-up ER for worsening symptoms
Original Note:
History of Present Illness
General
Chief Complaint: Abdominal Pain
Source: patient
Exam Limitations: none
Time Seen by Provider: 04/28/24 20:49
Nursing documentation reviewed up to this point in time: agreed with
History of Present Illness
History of Present Illness:
33-year-old female presents for evaluation of vomiting blood seen at [facility] yesterday had an upper endoscopy with a biopsy x 1, found to have possible gastric outlet obstruction, told to get a gastric emptying scan, she takes aspirin and Plavix
chronically had been held for 3 days, she was told she could restart the meds this morning she vomited 3 times with some bright red blood has not had a bowel movement yet, minimal pain, no fevers, no syncope
Most of her care is in the [facility] system no alcohol no tobacco took some Zofran earlier with some relief
Past History
Past History
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
ED Past Surgical History: Orthopedic (Left ankle surgery), Tonsilectomy and Other (Iliac stent left)
Social History
Tobacco: Non-smoker
Alcohol: Occasional
Drug: None
Personal: Single
Living: with family
Employment: Employed
Family History
Family History: Other (Noncontributory)
Review of Systems
Review of Systems
All Other Systems: Not applicable
Constitutional: Denies fever or fatigue
EENT: Reports no symptoms
Respiratory: Reports no symptoms
Cardiac: Reports no symptoms
ABD/GI: Reports abdominal pain, nausea, vomiting and other (Vomited blood)
Musculoskeletal: Reports no symptoms
Skin: Reports no symptoms
Neurological: Reports no symptoms
Endocrine: Reports no symptoms
Phy Exam
Physical Exam
Physical Exam:
Physical Exam
General: no apparent distress, not acutely ill
Neck: no jaundice
Heart: s1/s2 regular rate and rhythm, no murmur. equal radial pulses.
Lungs: no acute respiratory distress. clear bilaterally
Abdomen: Soft not
Neuro: alert and oriented. no focal neurological deficits
Skin: no rash
Psychiatric: well kept. interactive and cooperative
Extremities: no edema.
Course
Orders/Labs/Results
Orders:
Orders
04/28/24 16:14
Test Result ONCE
04/28/24 16:37
Type+Screen Urgent
Complete Blood Count/With Diff Urgent
Comprehensive Metabolic Panel Urgent
HCG, Serum Qualitative Screen Urgent
Lactate Level [Lactic Acid] Urgent
Lipase Urgent
04/28/24 20:21
ABO2 Urgent
BBK Wristband Number:
Associate notified that ABO2 has been ordered: [id number]
Date: 04/28/24
Time: 16:54
Flatwork Washer ID: [id number]
04/28/24 20:56
0.9% Sodium Chloride 1000 ml [Nss] 1,000 ml IV BOLUS
Ondansetron Injectable [Zofran] 4 mg IV NOW STA
Pantoprazole [Protonix IV] 40 mg IV NOW STA
Abnormal Lab Results
04/28/24
16:37
WBC 13.0 H 10^3/uL
(4.8-10.8)
Absolute Neuts (auto) 8.5 H 10^3/uL
(1.4-6.5)
Absolute Lymphs (auto) 3.5 H 10^3/uL
(1.2-3.4)
Absolute Monos (auto) 0.9 H 10^3/uL
(0.1-0.6)
Carbon Dioxide 21 L mmol/L
(22-30)
Glucose 102 H mg/dl
(70-99)
Total Bilirubin 1.8 H mg/dl
(0.2-1.3)
04/28/24 16:37
04/28/24 16:37
Vital Signs
Initial and Last Documented VS:
Initial Vital Signs
Temp Pulse Resp BP Pulse Ox
98.2 F 100 18 118/80 95
04/28/24 16:12 04/28/24 16:12 04/28/24 16:12 04/28/24 16:12 04/28/24 16:12
Last Documented Vital Signs
Temp Pulse Resp BP Pulse Ox
98.2 F 88 17 115/72 99
04/28/24 16:12 04/28/24 19:00 04/28/24 19:00 04/28/24 19:00 04/28/24 19:00
MDM/Problems Addressed
Differential Diagnosis Includes:
Gastritis, Lakeshia-Chambers tear bleeding related to biopsy
MDM/Problems Addressed:
Vomiting blood
Chronic conditions affecting care:
Multiple, including anticoagulant use
Acute Exacerbation and/or Progression of Chronic Illness:
Anticoagulant use
*Pulse Oximetry
Patient hypoxic: no
*Critical Care Note
Total Time (30-74mins, 75-104mins- exclusive of procedures): Not Applicable
Update Note
Update Note:
Update vital signs stable, abdomen soft and nontender hemoglobin noted BUN/creatinine noted hCG noted I did review her endoscopy report from [facility] on her phone she had a solitary biopsy, was told to restart her anticoagulant,
Take Zofran at home we will give her a dose of Zofran return next year hydrate her perform serial exams
ED Attending Note
-
Portions of this chart may have been created with voice recognition software.� Occasional wrong word or��sound alike� substitutions may have occurred due to the inherent limitations of voice recognition software.
Discharge Plan
Departure
Prescriptions:
No Action
Mirena 21 mcg/24 hr (8 yrs) 52 mg Intrauterine Device
1 device INTRAUTERINE UD
gabapentin 600 mg Tablet
600 mg PO TID
famotidine 40 mg Tablet
40 mg PO DAILY
midodrine 5 mg Tablet
7.5 mg PO DAILY
olanzapine 10 mg Tablet
10 mg PO DIRECTED PRN (Reason: headache resolution)
Rx Instructions:
pt. instructed to take 0.5 tablet for 4 nights and then increase to 1.5 tablets as needed for headache resolution.
clopidogrel 75 mg Tablet
75 mg PO QPM
omeprazole 40 mg Capsule,Delayed Release(Dr/Ec)
40 mg PO DAILY
acetaminophen [Tylenol Extra Strength] 500 mg Tablet
1,000 mg PO DAILYPRN PRN (Reason: mild pain)
ondansetron 8 mg Tablet,Disintegrating
8 mg PO Q8H PRN (Reason: nausea/vomiting)
ergocalciferol (vitamin D2) 1,250 mcg (50,000 unit) Capsule
1,250 mcg PO FR@0800
escitalopram oxalate 20 mg Tablet
20 mg PO DAILY
aripiprazole 15 mg Tablet
15 mg PO DAILY
insulin glargine [Lantus Solostar U-100 Insulin] 100 unit/mL (3 mL) Insulin Pen
10 unit SC HS PRN (Reason: high BG )
Xarelto 20 mg Tablet
20 mg PO QPM
prednisone 20 mg Tablet
5 mg PO NOON
Qulipta 100 mg tablet
100 mg PO DAILY
Patient Comments:
02/24/2024, pt. gets specially compounded at [facility] in [place] but does not know the name of it. patient ecw has her on 60mg daily on 02/09/2024
pindolol 5 mg Tablet
5 mg PO BID
Interventions
Interventions:
*Risk Screen - Suicide Last Done: 04/28/24 16:12
*General Assessment Last Done: 04/28/24 16:12
*Neglect/Abuse Screening Last Done: 04/28/24 16:12
ED- Fall Risk Assessment Last Done: 04/28/24 20:23
LX-[id number]-[id number] Assessment Last Done: 04/28/24 20:23
Discharge Date and Time
Print Language: GREENLANDIC
[2024-04-28] MEDS: NSS 1000 IV (21:27)
[2024-04-28] MEDS: ZOFRAN 4 MG IV (21:27)
[2024-04-28] MEDS: PROTONIX IV 40 MG IV (21:27)
--- NOTE | 2024-04-28 22:20 | ED.GENMED ---
History of Present Illness
General
Chief Complaint: Abdominal Pain
Time Seen by Provider: 04/28/24 20:49
Past History
Past History
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
ED Past Surgical History: Orthopedic (Left ankle surgery), Tonsilectomy and Other (Iliac stent left)
Social History
Tobacco: Non-smoker
Alcohol: Occasional
Drug: None
Personal: Single
Living: with family
Employment: Employed
Family History
Family History: Other (Noncontributory)
Course
Orders/Labs/Results
Orders:
Orders
04/28/24 16:14
Test Result ONCE
04/28/24 16:37
Type+Screen Urgent
Complete Blood Count/With Diff Urgent
Comprehensive Metabolic Panel Urgent
HCG, Serum Qualitative Screen Urgent
Lactate Level [Lactic Acid] Urgent
Lipase Urgent
04/28/24 20:21
ABO2 Urgent
BBK Wristband Number:
Associate notified that ABO2 has been ordered: [id number]
Date: 04/28/24
Time: 16:54
Assistant Commissioner ID: [id number]
04/28/24 20:56
0.9% Sodium Chloride 1000 ml [Nss] 1,000 ml IV BOLUS
Ondansetron Injectable [Zofran] 4 mg IV NOW STA
Pantoprazole [Protonix IV] 40 mg IV NOW STA
Abnormal Lab Results
04/28/24
16:37
WBC 13.0 H 10^3/uL
(4.8-10.8)
Absolute Neuts (auto) 8.5 H 10^3/uL
(1.4-6.5)
Absolute Lymphs (auto) 3.5 H 10^3/uL
(1.2-3.4)
Absolute Monos (auto) 0.9 H 10^3/uL
(0.1-0.6)
Carbon Dioxide 21 L mmol/L
(22-30)
Glucose 102 H mg/dl
(70-99)
Total Bilirubin 1.8 H mg/dl
(0.2-1.3)
04/28/24 16:37
04/28/24 16:37
Vital Signs
Initial and Last Documented VS:
Initial Vital Signs
Temp Pulse Resp BP Pulse Ox
98.2 F 100 18 118/80 95
04/28/24 16:12 04/28/24 16:12 04/28/24 16:12 04/28/24 16:12 04/28/24 16:12
Last Documented Vital Signs
Temp Pulse Resp BP Pulse Ox
98.2 F 88 17 115/72 99
04/28/24 16:12 04/28/24 19:00 04/28/24 19:00 04/28/24 19:00 04/28/24 19:00
Update Note
Update Note:
10:10 PM update patient feeling a bit better, no nausea or vomiting abdomen soft nontender
I did offer the patient admission she politely declined states that she like to go home, she told me she is concerned about the ramifications of denied admission as far as co-pays, which is not unreasonable, will discharge with Protonix, PCP GI
follow-up ER for worsening symptoms
ED Attending Note
-
Portions of this chart may have been created with voice recognition software.� Occasional wrong word or��sound alike� substitutions may have occurred due to the inherent limitations of voice recognition software.
Discharge Plan
Departure
Patient Disposition: Home (Routine Discharge)
Date of Disposition: 04/28/24
Time of Disposition: 22:21
Patient with high blood pressure during this ER visit?: No
Condition: Good
Discharge Problem:
Nausea and vomiting, Hematemesis
Instructions: Clear Liquid Diet, Nausea and Vomiting, Adult (DC)
Prescriptions:
No Action
Mirena 21 mcg/24 hr (8 yrs) 52 mg Intrauterine Device
1 device INTRAUTERINE UD
gabapentin 600 mg Tablet
600 mg PO TID
famotidine 40 mg Tablet
40 mg PO DAILY
midodrine 5 mg Tablet
7.5 mg PO DAILY
olanzapine 10 mg Tablet
10 mg PO DIRECTED PRN (Reason: headache resolution)
Rx Instructions:
pt. instructed to take 0.5 tablet for 4 nights and then increase to 1.5 tablets as needed for headache resolution.
clopidogrel 75 mg Tablet
75 mg PO QPM
omeprazole 40 mg Capsule,Delayed Release(Dr/Ec)
40 mg PO DAILY
acetaminophen [Tylenol Extra Strength] 500 mg Tablet
1,000 mg PO DAILYPRN PRN (Reason: mild pain)
ondansetron 8 mg Tablet,Disintegrating
8 mg PO Q8H PRN (Reason: nausea/vomiting)
ergocalciferol (vitamin D2) 1,250 mcg (50,000 unit) Capsule
1,250 mcg PO FR@0800
escitalopram oxalate 20 mg Tablet
20 mg PO DAILY
aripiprazole 15 mg Tablet
15 mg PO DAILY
insulin glargine [Lantus Solostar U-100 Insulin] 100 unit/mL (3 mL) Insulin Pen
10 unit SC HS PRN (Reason: high BG )
Xarelto 20 mg Tablet
20 mg PO QPM
prednisone 20 mg Tablet
5 mg PO NOON
Qulipta 100 mg tablet
100 mg PO DAILY
Patient Comments:
02/24/2024, pt. gets specially compounded at [facility] in [place] but does not know the name of it. patient ecw has her on 60mg daily on 02/09/2024
pindolol 5 mg Tablet
5 mg PO BID
Referrals:
Brennon Pierce MD [Family Provider] - Tomorrow
Activity Restrictions/Additional Instructions:
Continue Zofran every 4-6 hours for nausea vomiting, Protonix 40 mg a day
Return to the ER for worsening symptoms
Interventions
Interventions:
*Risk Screen - Suicide Last Done: 04/28/24 16:12
*General Assessment Last Done: 04/28/24 16:12
*Neglect/Abuse Screening Last Done: 04/28/24 16:12
ED- Fall Risk Assessment Last Done: 04/28/24 20:23
AY-Rkayvx-Kjmjrlapfj Assessment Last Done: 04/28/24 20:23
Discharge Date and Time
Print Language: UZBEK
[2024-04-28 22:59] VITALS: BP 111/73
== END 2024-04-28 23:00 | disposition home or self-care (01) ==
LOC: EMR 16:06
PROVIDERS: Emergency Medicine; EMERGENCY PHYSICIAN Emergency Medicine; FAMILY PHYSICIAN Family Medicine
DX: K92.0 Hematemesis (principal)
CPT/HCPCS: 99284; 96374; 96375; 96361; 80053; 83605; 83690; 84703; 85025; 86850; 86900; 86901

== ENCOUNTER 2024-05-31 07:33 | Outpatient (RCR) | payer OTHER, SELFPAY | END 2024-05-31 23:59 | disposition home or self-care (01) | LOC: RPT 07:33 | PROVIDERS: ATTENDING PHYSICIAN Obstetrics & Gynecology; FAMILY PHYSICIAN Family Medicine | DX: R33.9 Retention of urine, unspecified (principal); Z73.6 Limitation of activities due to disability | CPT/HCPCS: 97110; 97140; 97161; 97530 ==

== ENCOUNTER 2024-06-07 04:55 | Observation (INO) | payer OTHER, SELFPAY ==
[2024-06-06 21:29] VITALS: BP 136/94
[2024-06-06 21:49] LABS: % Basophils 0.3 % (0-2); % Eosinophils 1.1 % (0-6); % Immature Granulocytes 0.3 % (0-0.5); % Lymphocytes 25.6 % (20.5-51.1); % Monocytes 7.4 % (1.7-9.3); % Neutrophils 65.3 % (42.2-75.2); Absolute Eosinophils 0.1 10^3/uL (0-0.7); Absolute Lymphocytes 3.2 10^3/uL (1.2-3.4); Absolute Monocytes 0.9 10^3/uL (0.1-0.6); Hematocrit 45.6 % (37.0-47.0); Hemoglobin 15.8 g/dL (12.0-16.0); Mean Corp Hgb Conc. 34.6 g/dL (33.0-37.0); Mean Corpuscular Hgb 28.1 pg (27.0-31.0); Mean Platelet Volume 9.2 fL (7.4-10.4); Nucleated Red Blood Cells % 0 %; Platelet Count 374 10^3/uL (130-400); Red Blood Cell Count 5.63 10^6/uL (4.20-5.40); Red Cell Dist. Width 13.3 % (11.5-14.5); White Blood Cell Count 12.3 10^3/uL (4.8-10.8)
[2024-06-06 21:58] LABS: INR 0.99; PT 12.9 Sec (11.4-14.6)
[2024-06-06 22:05] LABS: HCG, Serum Qualitative Screen Negative
[2024-06-06 22:08] LABS: ALT (SGPT) 20 U/L (0-35); AST (SGOT) 27 U/L (14-36); Albumin 4.8 g/dl (3.5-5.0); Alkaline Phosphatase 104 U/L (38-126); Blood Urea Nitrogen 16 mg/dl (7-17); Calcium 9.8 mg/dl (8.4-10.2); Carbon Dioxide 27 mmol/L (22-30); Chloride 100 mmol/L (98-107); Glucose 102 mg/dl (70-99); Potassium 4.3 mmol/L (3.5-5.1); Sodium 141 mmol/L (135-145); Total Bilirubin 1.7 mg/dl (0.2-1.3); Total Protein 7.9 g/dl (6.3-8.2); eGFR > 60.00
[2024-06-06 22:12] LABS: Troponin I < 0.012 ng/ml
[2024-06-06 22:39] LABS: TSH Reflex To Free T4 1.53 uIU/ml (0.47-4.68)
[2024-06-07] VITALS (19 sets, daily range): BP systolic 79–115; BP diastolic 49–88; PULSE 92–101
--- NOTE | 2024-06-07 01:35 | ED.GENMED ---
History of Present Illness
<Elba Choi MD, Resident - Last Filed: 06/07/24 01:50>
General
Chief Complaint: Chest Pain
Source: patient
Exam Limitations: none
Time Seen by Provider: 06/07/24 00:39
History of Present Illness
History of Present Illness:
Patient is a 34-year-old female with extensive past medical history (including CVA, DVT, MVP, SLE, dermatomyositis, fibromyalgia, IDDM, POTS, May-Thurner syndrome with left iliac stent), mentions around 7 PM felt dizzy and lightheaded. When she
checked her blood pressure it was in the 60s and her heart rate was more than 100. Also mentions having more frequent bowel movements and loss of appetite (4-5 times a day) since . Denies fevers or chills. Denies nausea or vomiting.
Denies starting any new medications or change in dose of previous medications.
Past History
<Elba Choi MD, Resident - Last Filed: 06/07/24 01:50>
Past History
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
ED Past Surgical History: Orthopedic (Left ankle surgery), Tonsilectomy and Other (Iliac stent left)
Social History
Tobacco: Non-smoker
Alcohol: Occasional
Drug: None
Personal: Single
Living: with family
Employment: Employed
Family History
Family History: Other (Noncontributory)
Review of Systems
<Elba Choi MD, Resident - Last Filed: 06/07/24 01:50>
Review of Systems
Allergies reviewed?: Yes
All Other Systems: ROS reviewed and negative except as documented in HPI and ROS
Phy Exam
<Elba Choi MD, Resident - Last Filed: 06/07/24 01:50>
General Physical Exam
General Presentation: mild distress
General Mental: alert and anxious
General Hydration: dry mucous membranes (Mild dehydration)
Cardiovascular Exam
Cardiovascular Exam: regular rate/rhythm, no edema, no JVD and normal peripheral pulses
Pulmonary Exam
Pulmonary Exam: lungs clear, no respiratory distress, chest non tender, no crackles, no wheezing and no cough
Oxygen Status: room air
Gastrointestinal Exam
Gastrointestinal Exam: normal bowel sounds, non tender, soft and non distended
Neurological Exam
Neurological Exam: alert, oriented x3, no motor deficits and no sensory deficits
Musculoskeletal Exam
Musculoskeletal Exam: full ROM and no edema
Skin Exam
Skin Exam: normal color and warm/dry
Scores
<Elba Choi MD, Resident - Last Filed: 06/07/24 01:50>
Heart Score for Chest Pain Patients
STEMI patient?: No
History: Slightly or Non-Suspicious
ECG: Normal
Age: </= 45 years
Risk Factors: >/= 3 Risk Factors or History of CAD
Troponin: </= Normal Limit
Heart Score for Chest Pain Patients: 2
Heart Score Risk: 2.5% MACE over next 6 weeks
<David Downing DO - Last Filed: 06/07/24 04:03>
Heart Score for Chest Pain Patients
Heart Score for Chest Pain Patients: 2
Heart Score Risk: 2.5% MACE over next 6 weeks
Course
<Elba Choi MD, Resident - Last Filed: 06/07/24 01:50>
Orders/Labs/Results
Orders:
Orders
06/06/24 21:24
EKG [Electrocardiogram (*1)] Urgent
Reason for Study: Chest Pain
EKG- Treatment ONCE
06/06/24 21:35
Test Result ONCE
06/06/24 21:41
Complete Blood Count/With Diff Urgent
Comprehensive Metabolic Panel Urgent
Cortisol, Random Urgent
Comment: ADD ON
HCG, Serum Qualitative Screen Urgent
Prothrombin Time Urgent
TSH Reflex To Free T4 Urgent
Troponin I Urgent
06/07/24 01:28
0.9% Sodium Chloride 1000 ml [Nss] 1,000 ml IV BOLUS
Ketorolac [Toradol] 15 mg IV NOW STA
06/07/24 01:29
CR Chest - 2 Views Urgent
Comment:
Reason For Exam: pain
06/07/24 03:14
Add On- LAB Urgent
Tests Added?: random cortisol
Hydrocortisone Sod Succinate [Solu-Cortef] 100 mg IV NOW STA
06/07/24 04:00
Flush (0.9% Sodium Chloride) [Flush (Nss)] See Dose Instructions IV PER PROTOCOL
Abnormal Lab Results
06/06/24
21:41
WBC 12.3 H 10^3/uL
(4.8-10.8)
RBC 5.63 H 10^6/uL
(4.20-5.40)
Absolute Neuts (auto) 8.0 H 10^3/uL
(1.4-6.5)
Absolute Monos (auto) 0.9 H 10^3/uL
(0.1-0.6)
Glucose 102 H mg/dl
(70-99)
Total Bilirubin 1.7 H mg/dl
(0.2-1.3)
06/06/24 21:41
06/06/24 21:41
Vital Signs
Initial and Last Documented VS:
Initial Vital Signs
Temp Pulse Resp BP Pulse Ox
98.4 F 128 18 136/94 98
06/06/24 21:29 06/06/24 21:29 06/06/24 21:29 06/06/24 21:29 06/06/24 21:29
Last Documented Vital Signs
Temp Pulse Resp BP Pulse Ox
98.4 F 87 28 99/73 99
06/06/24 21:29 06/07/24 03:03 06/07/24 03:03 06/07/24 03:03 06/07/24 01:40
<David Downing, DO - Last Filed: 06/07/24 04:03>
Orders/Labs/Results
Orders:
Orders
06/06/24 21:24
EKG [Electrocardiogram (*1)] Urgent
Reason for Study: Chest Pain
EKG- Treatment ONCE
06/06/24 21:35
Test Result ONCE
06/06/24 21:41
Complete Blood Count/With Diff Urgent
Comprehensive Metabolic Panel Urgent
Cortisol, Random Urgent
Comment: ADD ON
HCG, Serum Qualitative Screen Urgent
Prothrombin Time Urgent
TSH Reflex To Free T4 Urgent
Troponin I Urgent
06/07/24 01:28
0.9% Sodium Chloride 1000 ml [Nss] 1,000 ml IV BOLUS
Ketorolac [Toradol] 15 mg IV NOW STA
06/07/24 01:29
CR Chest - 2 Views Urgent
Comment:
Reason For Exam: pain
06/07/24 03:14
Add On- LAB Urgent
Tests Added?: random cortisol
Hydrocortisone Sod Succinate [Solu-Cortef] 100 mg IV NOW STA
06/07/24 04:00
Flush (0.9% Sodium Chloride) [Flush (Nss)] See Dose Instructions IV PER PROTOCOL
Abnormal Lab Results
06/06/24
21:41
WBC 12.3 H 10^3/uL
(4.8-10.8)
RBC 5.63 H 10^6/uL
(4.20-5.40)
Absolute Neuts (auto) 8.0 H 10^3/uL
(1.4-6.5)
Absolute Monos (auto) 0.9 H 10^3/uL
(0.1-0.6)
Glucose 102 H mg/dl
(70-99)
Total Bilirubin 1.7 H mg/dl
(0.2-1.3)
06/06/24 21:41
06/06/24 21:41
Vital Signs
Initial and Last Documented VS:
Initial Vital Signs
Temp Pulse Resp BP Pulse Ox
98.4 F 128 18 136/94 98
06/06/24 21:29 06/06/24 21:29 06/06/24 21:29 06/06/24 21:29 06/06/24 21:29
Last Documented Vital Signs
Temp Pulse Resp BP Pulse Ox
98.4 F 87 28 99/73 99
06/06/24 21:29 06/07/24 03:03 06/07/24 03:03 06/07/24 03:03 06/07/24 01:40
<Elba Choi MD, Resident - Last Filed: 06/07/24 01:50>
MDM/Problems Addressed
Differential Diagnosis Includes:
Dehydration, POTS, Anxiety
MDM/Problems Addressed:
IV fluid was ordered for possible dehydration following diarrhea.
<Elba Choi MD, Resident - Last Filed: 06/07/24 01:50>
*Critical Care Note
Total Time (30-74mins, 75-104mins- exclusive of procedures): 30
ED Attending Note
<Elba Choi MD, Resident - Last Filed: 06/07/24 01:50>
-
Portions of this chart may have been created with voice recognition software.� Occasional wrong word or��sound alike� substitutions may have occurred due to the inherent limitations of voice recognition software.
<David Downing DO - Last Filed: 06/07/24 04:03>
ED Attending Note
Patient seen and examined by attending physician: Yes
I performed the substantive portion of visit, reviewed & personally made and approve the management plan that is documented in note by myself or CLOTILDE.: Yes
I performed a history and physical exam of patient and discussed management with resident, I reviewed resident's note and agree with documented findings and plan of care.: Yes
ED Attending Note:
I evaluated patient at bedside. The patient has multiple complaints. Borderline low blood pressure readings at times. White count slightly high at 12.3, total bili elevated but is similar to prior, troponin less than 0.012, TSH and hCG
unremarkable. Chest x-ray unremarkable. EKG sinus 119, left axis deviation, nonspecific ST abnormality. On reassessment, the patient feels no improvement. Blood pressures have been low. Added random cortisol level and will empirically give
hydrocortisone as her blood pressures have been low and is on low-dose steroids for dermatomyositis. Dr. Corinne beth for further management.
Discharge Plan
Departure
Patient Disposition: Admit
Date of Disposition: 06/07/24
Time of Disposition: 03:21
Presentation/result/management discussed w/ accepting MD/DO: Hospitalist
Patient with high blood pressure during this ER visit?: Yes
Discharge Problem:
Dizziness
Prescriptions:
No Action
Mirena 21 mcg/24 hr (8 yrs) 52 mg Intrauterine Device
1 device INTRAUTERINE UD
gabapentin 600 mg Tablet
600 mg PO TID
famotidine 40 mg Tablet
40 mg PO DAILY
midodrine 5 mg Tablet
7.5 mg PO DAILY
olanzapine 10 mg Tablet
10 mg PO DIRECTED PRN (Reason: headache resolution)
Rx Instructions:
pt. instructed to take 0.5 tablet for 4 nights and then increase to 1.5 tablets as needed for headache resolution.
clopidogrel 75 mg Tablet
75 mg PO QPM
omeprazole 40 mg Capsule,Delayed Release(Dr/Ec)
40 mg PO DAILY
acetaminophen [Tylenol Extra Strength] 500 mg Tablet
1,000 mg PO DAILYPRN PRN (Reason: mild pain)
ondansetron 8 mg Tablet,Disintegrating
8 mg PO Q8H PRN (Reason: nausea/vomiting)
ergocalciferol (vitamin D2) 1,250 mcg (50,000 unit) Capsule
1,250 mcg PO FR@0800
escitalopram oxalate 20 mg Tablet
20 mg PO DAILY
aripiprazole 15 mg Tablet
15 mg PO DAILY
insulin glargine [Lantus Solostar U-100 Insulin] 100 unit/mL (3 mL) Insulin Pen
10 unit SC HS PRN (Reason: high BG )
Xarelto 20 mg Tablet
20 mg PO QPM
prednisone 20 mg Tablet
5 mg PO NOON
Qulipta 100 mg tablet
100 mg PO DAILY
Patient Comments:
02/24/2024, pt. gets [facility] [place] but does not know the name of it. patient ecw has her on 60mg daily on 02/09/2024
pindolol 5 mg Tablet
5 mg PO BID
pantoprazole [Protonix] 40 mg tablet,delayed release (DR/EC)
40 mg PO DAILY Qty: 30 0RF
Referrals:
Brennon Peirce MD [Family Provider] -
Interventions
Interventions:
*Risk Screen - Suicide Last Done: 06/06/24 21:33
*General Assessment Last Done: 06/06/24 21:33
*Neglect/Abuse Screening Last Done: 06/06/24 21:33
ED- Fall Risk Assessment Last Done: 06/07/24 01:41
*ED COVID-19 Vaccine History Last Done: 06/07/24 01:40
ED- Cardiac Assessment Last Done: 06/07/24 01:39
Discharge Date and Time
Print Language: CHINESE
[2024-06-07] MEDS: NSS 1000 IV (01:44)
[2024-06-07] MEDS: TORADOL 15 MG IV (02:04)
[2024-06-07] MEDS: SOLU-CORTEF 100 MG IV (03:36)
--- NOTE | 2024-06-07 03:48 | HPS.HSE ---
Family Physician
-
Family Physician: Brennon Pierce
Chief Complaint
-
Low blood pressure, generalized pain, chest pain
History of Present Illness
Patient is a 34-year-old female with a complex past medical history including history of POTS, May-Thurner syndrome on anticoagulation on antiplatelet, migraine headaches, dermatomyositis, long COVID syndrome, anxiety who came into the emergency
department after developing the generalized aches and pains in her joints as well as muscles and development of substernal chest pain that has been persistent and appears to be radiating to the neck. She did not check the vital signs later in the
evening and found that she was hypotensive and tachycardic.
Patient reports that the generalized pain has been more subacute but worsening over the last few days. She denies any other acute symptoms. She denies any acute changes in her medications. She denies fevers or chills. She denies any sick
contact. She denies cough, wheezing, dyspnea on exertion or shortness of breath. Patient reports feeling cold but denies having any chills or sweats at home. Denies any urinary symptoms. There is been no nausea or vomiting. He had loose stools,
multiple times today but otherwise has not had diarrhea. No recent antibiotic use.
Patient stated that she checked her blood pressure in the evening and it was 60 systolic with a heart rate in the 100s. She apparently took beta-jasmin due to the elevated heart rate which did not improve things and so she decided to come to the
emergency department. Patient did not specifically complain of migraine headaches at this time.
In the emergency department she was afebrile, blood pressure was initially 99/70 with a pulse in the 80s. Was not saturation was 90% on room air. ECG shows sinus tachycardia at rate of 119 and unchanged from prior. Troponin was negative. CBC
showed leukocytosis to 12,000 but was within normal limits otherwise. Chemistries were also within normal limits, LFTs within normal limits. Chest x-ray was clear.
Medical History
Past Medical History
Past Medical History: Reports Other
Additional Past Medical History:
Migraine headaches
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
Dermatomyositis
GERD
POTS
Anxiety
Diabetes
Past Surgical History: Reports None
Social History
Tobacco: Non-smoker
Alcohol: None
Drug: None
Personal: Partner
Living: With Family
Family History
Family History: Not pertinent
Allergies / Home Medications
Allergies reflects when Allergies were last updated in [employer].
Home Medications with original date entered in [employer]
Allergy/Medication List:
Allergies
Allergy/AdvReac Type Severity Reaction Status Date / Time
amoxicillin Allergy Unknown Verified 04/28/24 16:12
doxycycline Allergy Unknown Verified 04/28/24 16:12
Penicillins Allergy Unknown Verified 04/28/24 16:12
Home Medications
Qulipta 100 mg PO DAILY 02/24/24
acetaminophen 500 mg tablet (Tylenol Extra Strength) 1,000 mg PO DAILYPRN PRN mild pain 02/24/24
aripiprazole 15 mg tablet 15 mg PO DAILY 02/24/24
clopidogrel 75 mg tablet 75 mg PO QPM 02/24/24
ergocalciferol (vitamin D2) 1,250 mcg (50,000 unit) capsule 1,250 mcg PO FR@0800 02/24/24
escitalopram oxalate 20 mg tablet 20 mg PO DAILY 02/24/24
famotidine 40 mg tablet 40 mg PO DAILY 02/24/24
gabapentin 600 mg tablet 600 mg PO TID 02/24/24
insulin glargine 100 unit/mL (3 mL) subcutaneous pen (Lantus Solostar U-100 Insulin) 10 unit SC HS PRN high BG 02/24/24
levonorgestrel 21 mcg/24 hr (up to 8 years) 52 mg intrauterine device (Mirena) 1 device intrauterine UD 02/24/24
midodrine 5 mg tablet 7.5 mg PO DAILY 02/24/24
olanzapine 10 mg tablet 10 mg PO DIRECTED PRN headache resolution 02/24/24
omeprazole 40 mg capsule,delayed release 40 mg PO DAILY 02/24/24
ondansetron 8 mg disintegrating tablet 8 mg PO Q8H PRN nausea/vomiting 02/24/24
prednisone 20 mg tablet 5 mg PO NOON 02/24/24
rivaroxaban 20 mg tablet (Xarelto) 20 mg PO QPM 02/24/24
pantoprazole 40 mg tablet,delayed release (Protonix) 40 mg PO DAILY #30 tabs 04/28/24
pindolol 5 mg tablet 5 mg PO BID 04/28/24
Review of Systems
-
History Source: Patient
Constitutional: Reports Fatigue
EENT: Reports No Symptoms
Respiratory: Reports No Symptoms
Cardiac: Reports Chest Pain
Abdomen/GI: Reports Diarrhea
: Reports No Symptoms
Musculoskeletal: Reports Joint Pain and Muscle Pain
Skin: Reports No Symptoms
Neurological: Reports No Symptoms
Endocrine: Reports Other (Hypotension)
Hematologic/Lymphatic: Reports No Symptoms
Psych: Reports No Symptoms
Physical Exam
Vital Signs
Vital Signs
Temp Pulse Resp BP Pulse Ox
98.4 F 87 28 99/73 99
06/06/24 21:29 06/07/24 03:03 06/07/24 03:03 06/07/24 03:03 06/07/24 01:40
Physical Exam
General: Well Developed, Well Nourished and Comfortable
HEENT: NormoCephalic, Anicteric, Moist mucous membranes, Atraumatic and PERRLA
Respiratory: Clear
Cardiac: S1/S2 and Regular Rhythm
GI: Soft, Non Tender, Non Distended and Normal Bowel Sounds
Genito-urinary: No costovertebral tender
Musculoskeletal: No Clubbing, No Cyanosis and No Edema
Skin: Warm
Neuro: AO x 3
Hematologic/Lymphatic: No Lymphadenopathy
Psych: Anxious
Laboratory Results
-
06/06/24 21:41
06/06/24 21:41
Laboratory Results
PT 12.9 Sec (11.4-14.6) 06/06/24 21:41
INR 0.99 06/06/24 21:41
Total Bilirubin 1.7 mg/dl (0.2-1.3) H 06/06/24 21:41
AST 27 U/L (14-36) 06/06/24 21:41
ALT 20 U/L (0-35) 06/06/24 21:41
Alkaline Phosphatase 104 U/L (38-126) 06/06/24 21:41
Troponin I < 0.012 ng/ml 06/06/24:41
Data Reviewed
-
Diagnostic Radiology: Image Personally Visualized and interpreted
Medical Tests (Nuc Med, Echo, EKG etc): Image Personally Visualized and interpreted
Lab Data: Labs Reviewed by me
Old Records: Reviewed
Impression/Plan
-
IMPRESSION:
This is a 34-year-old female with complex comorbidities including history of POTS, insulin-dependent diabetes, May Thurner syndrome, dermatomyositis, anxiety, migraine headaches coming to the emergency department with chest pain, generalized aches
and pains and hypotension with tachycardia. Evaluation in the ED is unrevealing with essentially normal ECG troponin chemistries CBC LFTs chest x-ray as usual for prior presentations. She was given IV fluids in the ED. Blood pressure did improve
to the 90s 200s over 60s to 70s systolic. However patient still felt uncomfortable. During my interview with she was quite emotional and anxious stating that she has been to the ED several times and they always send her home to deal with pain due
to lack of specific findings. I discussed that we will examine each of her complaints are [id number]-iw-kugk before discharging home this time.
PLAN:
1.Chest pain -patient's chest pain has been persistent for several hours without exacerbating or relieving factors. ECG is nonischemic. Troponin enzymes were also pain was negative. Do not suspect that this pain is cardiac in etiology.
- However we will admit to telemetry and repeat cardiac enzymes in 4 hours. Patient cannot tolerate his nitroglycerin due to history of POTS and hypotension. She is already anticoagulated on Xarelto and is taking Plavix. Will hold off on aspirin
at this time. Continue general pain control.
2. Blood pressure -history of POTS on midodrine and pindolol. Reported that blood pressure was 60s systolic and then 70s systolic, showed me pictures of home monitor. Blood pressures has been in the 90s systolic or higher in the emergency
department. No syncopal episode. ECG shows no ischemic changes. No arrhythmias except for sinus tachycardia. Patient given 1 L of normal saline. Blood pressure has ranged up to as high as 120 systolic but remains mostly in the 90s to 110s. I
expect that this is usual range. However patient is on chronic low-dose steroids having been on 5 mg of prednisone for several months following a prior taper.
- random cortisol, if normal will not continue stress steroids, got FreyauFaviolacortjoseph in ED
- continue midodrine 7.5 tid for now
- continue pindol 5mg bid for POTS
- orthostatic vital signs, if orthostatic by BP will give additional iv fluids
-
3. Generalized pain/Dermatomyositis - Non-specific aches and pains. Has a mild facial erythema. No joint swelling or erythema. No other skin rash.
- check esr, crp and yazmin, if no evidence of increase activity, patient can follow up with rheum outpatient
- continue current azathiprine and prednisone
- gabapentin
- acetaminophen and low dose oxycodone
4. Dm II -
- lantus 5 hs
- aspart 5 units tidac (on adjusted doses of up to 10 at home)
- sliding scale insulin low dose
5. May-Thuner
- continue Xarelto, continue plavix
6. Anxiety - Patient is clealy anxious. Unclear if depressed. Likely multiple medical conditions contributing but she feel she has been somewhat ignored with blaming her symptoms on anxiety.
- continue lexapro for now
DVT PPX - on Xarelto
Code Status - Full Code
[2024-06-07 04:37] LABS: Cortisol, Random 1.4 ug/dl
[2024-06-07 08:03] LABS: Glucose - Point of Care 108 mg/dl (70-99)
[2024-06-07] MEDS: ADVAIR HFA 230/21 MCG INHALER 2 PUFF INH ×2 (08:28→20:28)
[2024-06-07] MEDS: VISKEN 5 MG PO ×2 (09:01→22:43)
[2024-06-07] MEDS: ProAmatine 7.5 MG PO ×3 (09:02→18:20)
[2024-06-07] MEDS: NEURONTIN 600 MG PO ×3 (09:03→22:43)
[2024-06-07] MEDS: ABILIFY 15 MG PO (09:03)
[2024-06-07] MEDS: LEXAPRO 20 MG PO (09:04)
[2024-06-07] MEDS: PEPCID 40 MG PO (09:04)
[2024-06-07] MEDS: NOVOLOG FLEXPEN 5 UNITS SC ×2 (09:19→12:31)
[2024-06-07 09:59] LABS: Troponin I < 0.012 ng/ml
--- NOTE | 2024-06-07 11:58 | W.PN.HOSP.TC ---
Today's Communication/Plan
-
Start lidocaine patch
Supportive IV fluids
Assessment / Plan
Assessment / Plan
#Noncardiac chest pain
-Suspicion high for musculoskeletal etiology
-ECGs here without any acute ischemic findings, troponins also negative
-Very low suspicion for cardiac etiology, and is already on AC with Plavix and Xarelto
-Will continue with supportive care, start lidocaine patch
#POTS
#Hypotension
-Chronically on midodrine and pindolol for history of POTS
-States her blood pressure was in the range of 60 to 70 mmHg systolic [employer]
-Blood pressure here has been near 100 mmHg systolic, seems to be her baseline
-Random cortisol level was normal, low suspicion for adrenal component
-Will continue to monitor BP, orthostats and give IV fluid
#Dermatomyositis
#Demargination from chronic steroid
-Home regimen includes azathioprine and prednisone; also on gabapentin and oxycodone for analgesia
-No signs of flare at this time; states she has been compliant with home meds
-Has a persistently elevated WBC count due to chronic steroid therapy
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
-Home regimen includes Xarelto, Plavix
-Does have some chronic swelling to the lower extremity
#IDDM
-Home regimen includes Lantus 10 units nightly, insulin lispro ISS
-No known microvascular complications or macrovascular
-suspect that this is related with her chronic steroid regimen
-Blood glucose goal 150-200 while here
#Leg swelling
-Patient states her lower extremities are slightly more swollen than usual
-Order ultrasound bilateral lower extremities
Anticipated Discharge: Within 24 hours
Subjective/Interval History
-
Date of Service: June 07, 2024
Seen and examined bedside. No acute events overnight. AFVSS this morning
Complains of continued chest discomfort, states it feels like someone is punching her. Not reproducible.
She denies dyspnea, fevers or chills, GI issues, urinary issues, paresthesias or weakness, bleeding or bruising.
Objective Data
-
Vital Signs:
Vital Signs
Temp Pulse Resp BP Pulse Ox
98.0 F 82 16 98/59 96
06/07/24 11:25 06/07/24 11:25 06/07/24 11:25 06/07/24 11:25 06/07/24 11:25
Review of Systems
-
History Source: Patient
All other systems: Reviewed and negative
Physical Exam
-
General: Well Nourished, No Apparent Distress and Comfortable
HEENT: Normocephalic, Atraumatic and Moist Mucous Membranes
Respiratory: Clear to Auscultation and Non Labored Respirations; Negative Wheezes, Rales, Rhonchi or Accessory Resp Muscle Use
Cardiac: Regular Rhythm and S1/S2; Negative Murmur, Rub, JVD or Gallop
GI: Soft, Nontender, Nondistended and Normal Bowel Sounds
Musculoskeletal: No Clubbing, No Cyanosis and No Edema
Neuro: AO x 3, Nonfocal/Grossly Intact and Central Nerve's Intact
Psych: Calm
Data Reviewed
-
Medical Tests (Nuc Med, Echo etc): Discussed with Patient
Labs: Labs Reviewed by me and Discussed with Patient
[2024-06-07 12:04] LABS: Glycohemoglobin (HgbA1c) 5.4 % (4.0-5.6)
[2024-06-07 12:13] LABS: Glucose - Point of Care 119 mg/dl (70-99)
[2024-06-07] MEDS: DELTASONE 5 MG PO (12:28)
[2024-06-07] MEDS: LIDOCAINE 4% PATCH TOPICAL (12:45)
[2024-06-07 14:26] LABS: Troponin I < 0.012 ng/ml
[2024-06-07 16:14] LABS: Glucose - Point of Care 99 mg/dl (70-99)
--- NOTE | 2024-06-07 16:44 | CM ---
Addendum entered by Yeimi Paris RN 06/08/24 18:09:
JIGAR reviewed medical records. No needs noted.
Original Note:
CM reviewed medical records. CM met with patient and patient's mother in room. OBS letter given.
Patient does not have a history of VN, SNF and DME. Patient is active with her PCP> Patient has medication coverage.
PLAN: home no needs.
[2024-06-07] MEDS: NOVOLOG FLEXPEN SC (18:07)
[2024-06-07] MEDS: PLAVIX 75 MG PO (18:20)
[2024-06-07] MEDS: XARELTO 20 MG PO (18:20)
[2024-06-07 18:25] LABS: Glucose - Point of Care 129 mg/dl (70-99)
[2024-06-07 22:37] LABS: Glucose - Point of Care 111 mg/dl (70-99)
[2024-06-07] MEDS: LANTUS 0.05 UNITS SC (22:43)
[2024-06-07] MEDS: TYLENOL 650 MG PO (22:48)
[2024-06-08] VITALS (7 sets, daily range): BP systolic 94–110; BP diastolic 55–72; PULSE 70–90
[2024-06-08 06:49] LABS: Blood Urea Nitrogen 19 mg/dl (7-17); Carbon Dioxide 25 mmol/L (22-30); Chloride 105 mmol/L (98-107); Glucose 104 mg/dl (70-99); Potassium 3.4 mmol/L (3.5-5.1); Sodium 141 mmol/L (135-145); eGFR > 60.00
[2024-06-08 06:58] LABS: % Basophils 0.3 % (0-2); % Eosinophils 0.9 % (0-6); % Immature Granulocytes 0.4 % (0-0.5); % Lymphocytes 28.3 % (20.5-51.1); % Monocytes 7.3 % (1.7-9.3); % Neutrophils 62.8 % (42.2-75.2); Absolute Eosinophils 0.1 10^3/uL (0-0.7); Absolute Lymphocytes 2.7 10^3/uL (1.2-3.4); Absolute Monocytes 0.7 10^3/uL (0.1-0.6); Hematocrit 38.3 % (37.0-47.0); Hemoglobin 13.1 g/dL (12.0-16.0); Mean Corp Hgb Conc. 34.2 g/dL (33.0-37.0); Mean Corpuscular Hgb 28.3 pg (27.0-31.0); Mean Corpuscular Volume 82.7 fL (81.0-99.0); Mean Platelet Volume 9.6 fL (7.4-10.4); Nucleated Red Blood Cells % 0 %; Platelet Count 302 10^3/uL (130-400); Red Blood Cell Count 4.63 10^6/uL (4.20-5.40); Red Cell Dist. Width 13.6 % (11.5-14.5); White Blood Cell Count 9.6 10^3/uL (4.8-10.8)
[2024-06-08 08:34] LABS: Erythrocyte Sed Rate 25 mm/hour (0-20)
[2024-06-08] MEDS: LEXAPRO 20 MG PO (08:45)
[2024-06-08] MEDS: ABILIFY 15 MG PO (08:45)
[2024-06-08] MEDS: ProAmatine 7.5 MG PO ×2 (08:45→13:24)
[2024-06-08 08:54] LABS: Glucose - Point of Care 94 mg/dl (70-99)
[2024-06-08] MEDS: LIDOCAINE 4% PATCH 1 PATCH TOPICAL (08:54)
[2024-06-08] MEDS: PEPCID 40 MG PO (08:56)
[2024-06-08] MEDS: NOVOLOG FLEXPEN 5 UNITS SC ×2 (09:06→13:17)
[2024-06-08] MEDS: NEURONTIN 600 MG PO ×2 (09:16→15:40)
[2024-06-08] MEDS: VISKEN 5 MG PO (09:16)
[2024-06-08] MEDS: TYLENOL 650 MG PO (09:18)
[2024-06-08] MEDS: ADVAIR HFA 230/21 MCG INHALER 2 PUFF INH (09:24)
--- NOTE | 2024-06-08 10:20 | W.PN.HOSP.TC ---
Today's Communication/Plan
-
Continue with lidocaine patch
Start Tylenol
Possible discharge later
Assessment / Plan
Assessment / Plan
#Noncardiac chest pain
-Suspicion high for musculoskeletal etiology
-ECGs here without any acute ischemic findings, troponins also negative
-Very low suspicion for cardiac etiology, and is already on AC with Plavix and Xarelto
-Will continue with supportive care, lidocaine patch with not much benefit
-Will start 1 g Tylenol every 6 hours for pain
#POTS
#Hypotension
-Chronically on midodrine and pindolol for history of POTS
-States her blood pressure was in the range of 60 to 70 mmHg systolic [employer]
-Blood pressure here has been near 100 mmHg systolic, seems to be her baseline
-Random cortisol level was normal, low suspicion for adrenal component
-Will continue to monitor BP, orthostats and give IV fluid
#Dermatomyositis
#Demargination from chronic steroid
-Home regimen includes azathioprine and prednisone; also on gabapentin and oxycodone for analgesia
-No signs of flare at this time; states she has been compliant with home meds
-Has a persistently elevated WBC count due to chronic steroid therapy
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
-Home regimen includes Xarelto, Plavix
-Does have some chronic swelling to the lower extremity
#IDDM
-Home regimen includes Lantus 10 units nightly, insulin lispro ISS
-No known microvascular complications or macrovascular
-suspect that this is related with her chronic steroid regimen
-Blood glucose goal 150-200 while here
#Leg swelling
-Patient states her lower extremities are slightly more swollen than usual
-Order ultrasound bilateral lower extremities
#Hypokalemia
-Provided 40 mill equivalent x 2 of KCl today for borderline low potassium
-Continue to monitor BMP and replete as needed
DVT prophylaxis: Home Xarelto
Diet: Regular
CODE STATUS: Full code
Anticipated Discharge: Within 24 hours
Subjective/Interval History
-
Date of Service: June 08, 2024
Seen and examined bedside. No acute vents overnight. AFVSS this morning.
States she feels about the same, just generally lousy. Her chest pain is no better after lidocaine patch, remains nonreproducible.
She denies dyspnea, fevers or chills, GI upset, urinary issues, bleeding or bruising, paresthesias or weakness
Objective Data
-
Labs:
Laboratory Results
06/08/24
06:11
WBC 9.6
Hgb 13.1
Hct 38.3
Plt Count 302
Sodium 141
Potassium 3.4 L
Chloride 105
Carbon Dioxide 25
BUN 19 H
Creatinine 0.7
Glucose 104 H
Calcium 9.0
Vital Signs:
Vital Signs
Temp Pulse Resp BP Pulse Ox
98.1 F 87 18 103/69 96
06/08/24 09:00 06/08/24 09:29 06/08/24 09:29 06/08/24 08:00 06/08/24 09:29
Review of Systems
-
History Source: Patient
All other systems: Reviewed and negative
Physical Exam
-
General: Well Nourished, No Apparent Distress and Comfortable
HEENT: Normocephalic, Atraumatic and Moist Mucous Membranes
Respiratory: Clear to Auscultation and Non Labored Respirations; Negative Wheezes, Rales or Rhonchi
Cardiac: Regular Rhythm and S1/S2; Negative Murmur, Rub or Gallop
GI: Soft, Nontender, Nondistended and Normal Bowel Sounds
Musculoskeletal: No Clubbing, No Cyanosis, No Edema and Other (No reproducible pain to the chest wall)
Skin: Warm and Dry; Negative Rash
Neuro: AO x 3, Nonfocal/Grossly Intact and Central Nerve's Intact
Psych: Calm
Data Reviewed
-
Labs: Labs Reviewed by me and Discussed with Patient
[2024-06-08] MEDS: KCL 40 MEQ PO (10:28)
[2024-06-08 12:58] LABS: Glucose - Point of Care 100 mg/dl (70-99)
[2024-06-08] MEDS: DELTASONE 5 MG PO (13:42)
--- NOTE | 2024-06-09 13:56 | W.DCSUMMARY ---
Discharge Summary
Discharge Data
Date of Admission: 06/07/24
Date of Discharge: 06/08/24
-
Pending Results: No
Hospital Course
34-year-old female with POTS, chronic hypotension, dermatomyositis on prednisone, May Dodge syndrome, IDDM, that presented to the hospital with chest pain. X-ray unremarkable for any acute intrathoracic findings nor evidence of fractures or other
musculoskeletal issues. EKG x 3 as well as troponin x 3 were unremarkable for ischemic findings. Was started on Tylenol and lidocaine patch with minimal improvement of pain. Discharged on 06/08/2024 with recommendation of follow-up with PCP. Has
chronic GERD, may have underlying dyspepsia/symptoms from the GERD. Encouraged monitoring for dyspeptic symptoms. Should consider GI after discharge
Discharge Plan
-
Patient Disposition: Home (Routine Discharge)
Discharge Diagnosis/Procedures: Chest pain, non-cardiac
Condition: Good
Diet: No restrictions
Activity: No restrictions
Driving Restrictions: As prior to admission
Blood Work: N/A
Others Tests: N/A
Activity Restrictions/Additional Instructions:
Follow up with your family doctor in 1-2 weeks, consideration for GI referral for work-up of possible dyspepsia/GERD.
You should sustain from all work related activities through friday06/09/2024. May return to work on the following day if symptoms allow.
Instructions: Chest pain
Referrals:
Artis Young MD [Non-Admitting Privileges] - in one to two weeks (If new PCP needed)
Brennon Pierce MD [Family Provider] -
Additional Discharge Medication Instructions: Continue Tylenol as need for pain (do not exceed 3500 mg per day)
Prescriptions:
Continued
gabapentin 600 mg Tablet
600 mg PO TID
famotidine 40 mg Tablet
40 mg PO HS
midodrine 5 mg Tablet
7.5 mg PO BID
olanzapine 10 mg Tablet
10 mg PO DIRECTED PRN (Reason: headache resolution)
Rx Instructions:
pt. instructed to take 0.5 tablet for 4 nights and then increase to 1.5 tablets as needed for headache resolution.
clopidogrel 75 mg Tablet
75 mg PO NOON
omeprazole 40 mg Capsule,Delayed Release(Dr/Ec)
40 mg PO DAILY
Patient Comments:
06/07/24: Patient mixes with something like apple sauce
acetaminophen [Tylenol Extra Strength] 500 mg Tablet
1,000 mg PO DAILYPRN PRN (Reason: mild pain)
ondansetron 8 mg Tablet,Disintegrating
8 mg PO Q8HPRN PRN (Reason: nausea/vomiting)
escitalopram oxalate 20 mg Tablet
20 mg PO DAILY
aripiprazole 15 mg Tablet
15 mg PO DAILY
insulin glargine [Lantus Solostar U-100 Insulin] 100 unit/mL (3 mL) Insulin Pen
10 unit SC HS
Xarelto 20 mg Tablet
20 mg PO NOON
pindolol 5 mg Tablet
5 mg PO NOON
prednisone 5 mg Tablet
5 mg PO NOON
cyanocobalamin (vitamin B-12) 1,000 mcg Tablet
1,000 mcg PO DAILY
ascorbic acid (vitamin C) [Vitamin C] 500 mg Tablet
500 mg PO DAILY
ferrous sulfate 325 mg (65 mg iron) Tablet
325 mg PO DAILY
diphenhydramine HCl 12.5 mg/5 mL Elixir
12.5 mg PO Q4HPRN PRN (Reason: nausea)
lorazepam 1 mg Tablet
1 mg PO BIDPRN PRN (Reason: anxiety)
insulin lispro [Humalog U-100 Insulin] 100 unit/mL Solution
1 sliding scale dose SC AC
azathioprine 100 mg Tablet
100 mg PO HS
rfybitp-alazvykjh-yrwx 333-133-5 mg Tablet
3 tab PO HS
Centrum Silver Women 8 mg iron-400 mcg-50 mcg Tablet
1 tab PO NOON
cholecalciferol (vitamin D3) 1,250 mcg (50,000 unit) Tablet
1,250 mcg PO FR
Qulipta 60 mg Tablet
60 mg PO DAILY
fluticasone propion-salmeterol [Advair HFA] 230-21 mcg/actuation Hfa Aerosol Inhaler
1 puff INHALATION DAILYPRN PRN (Reason: sob)
Discharge Orders:
Discharge Patient (As Directed); Ordered 06/08/24
Ordered By: Artis Villarreal
Discharge Date and Time
Discharge Date/Time: 06/08/24 18:05
Print Language: FILIPINO
[2024-06-10 01:58] LABS: ANA, IgG Reflex to HEp-2 Detected (None Detected)
[2024-06-11 07:02] LABS: ANA, HEp-2, IgG <1:80 (<1:80)
== END 2024-06-08 18:05 | disposition home or self-care (01) ==
LOC: ED 04:55
PROVIDERS: Emergency Medicine; ADMITTING PHYSICIAN Internal Medicine; ATTENDING PHYSICIAN Internal Medicine; EMERGENCY PHYSICIAN Emergency Medicine; FAMILY PHYSICIAN Internal Medicine Cardiovascular Disease
DX: R07.9 Chest pain, unspecified (principal); R07.2 Precordial pain; R42 Dizziness and giddiness; M32.9 Systemic lupus erythematosus, unspecified; M79.7 Fibromyalgia; E11.9 Type 2 diabetes mellitus without complications; G90.A Postural orthostatic tachycardia syndrome [POTS]; F41.9 Anxiety disorder, unspecified; I95.9 Hypotension, unspecified; I87.1 Compression of vein; F32.A Depression, unspecified; J45.909 Unspecified asthma, uncomplicated; E87.6 Hypokalemia; R19.7 Diarrhea, unspecified; G43.909 Migraine, unspecified, not intractable, without status migrainosus; M33.13 Other dermatomyositis without myopathy; M79.89 Other specified soft tissue disorders; I69.351 Hemiplegia and hemiparesis following cerebral infarction affecting right dominant side; Z86.718 Personal history of other venous thrombosis and embolism; Z87.442 Personal history of urinary calculi; Z87.01 Personal history of pneumonia (recurrent); Z79.52 Long term (current) use of systemic steroids; Z79.4 Long term (current) use of insulin; Z79.02 Long term (current) use of antithrombotics/antiplatelets; Z79.3 Long term (current) use of hormonal contraceptives; K21.9 Gastro-esophageal reflux disease without esophagitis; Z88.0 Allergy status to penicillin; Z88.1 Allergy status to other antibiotic agents; Z79.01 Long term (current) use of anticoagulants; Z60.2 Problems related to living alone
CPT/HCPCS: 71046; 80048; 80053; 82533; 82962; 83036; 84443; 84484; 84703; 85025; 85610; 85652; 86038; 86039; 93005; 93970; 94640; 96361; 96374; 96375; 99291; G0378

== ENCOUNTER 2024-07-20 15:20 | Outpatient (RCR) | payer OTHER, SELFPAY | END 2024-07-20 23:59 | disposition home or self-care (01) | LOC: RPT 15:20 | PROVIDERS: ATTENDING PHYSICIAN Obstetrics & Gynecology; FAMILY PHYSICIAN Family Medicine | DX: R33.9 Retention of urine, unspecified (principal); Z73.6 Limitation of activities due to disability | CPT/HCPCS: 97110; 97140 ==

== ENCOUNTER 2024-08-10 14:45 | Outpatient (RCR) | payer OTHER, SELFPAY | END 2024-08-10 23:59 | disposition home or self-care (01) | LOC: RPT 14:45 | PROVIDERS: ATTENDING PHYSICIAN Obstetrics & Gynecology; FAMILY PHYSICIAN Family Medicine | DX: R33.9 Retention of urine, unspecified (principal); Z73.6 Limitation of activities due to disability; M62.81 Muscle weakness (generalized) | CPT/HCPCS: 97110; 97140 ==

== ENCOUNTER → 2024-08-19 06:49 | Outpatient (REF) | payer OTHER, SELFPAY | LOC: MRI 3T 06:49 | PROVIDERS: ATTENDING PHYSICIAN Physician Assistant Medical; FAMILY PHYSICIAN Family Medicine | DX: M25.552 Pain in left hip (principal) | CPT/HCPCS: 73721 ==

== ENCOUNTER 2024-08-23 17:00 | Emergency (ER) | payer OTHER, SELFPAY ==
[2024-08-23 17:10] VITALS: BP 126/81
[2024-08-23 17:43] LABS: HCG, Serum Qualitative Screen Negative
[2024-08-23 17:44] LABS: % Basophils 0.3 % (0-2); % Eosinophils 0.2 % (0-6); % Immature Granulocytes 0.5 % (0-0.5); % Lymphocytes 15.5 % (20.5-51.1); % Monocytes 10.6 % (1.7-9.3); % Neutrophils 72.9 % (42.2-75.2); Absolute Immature Granulocytes 0.1 10^3/uL (0-0.05); Absolute Lymphocytes 1.5 10^3/uL (1.2-3.4); Absolute Monocytes 1.1 10^3/uL (0.1-0.6); Absolute Neutrophils 7.2 10^3/uL (1.4-6.5); Hematocrit 44.9 % (37.0-47.0); Hemoglobin 15.2 g/dL (12.0-16.0); Mean Corp Hgb Conc. 33.9 g/dL (33.0-37.0); Mean Corpuscular Hgb 28.7 pg (27.0-31.0); Mean Corpuscular Volume 84.9 fL (81.0-99.0); Mean Platelet Volume 9.4 fL (7.4-10.4); Nucleated Red Blood Cells % 0 %; Platelet Count 269 10^3/uL (130-400); Red Blood Cell Count 5.29 10^6/uL (4.20-5.40); Red Cell Dist. Width 13.4 % (11.5-14.5); White Blood Cell Count 9.9 10^3/uL (4.8-10.8)
[2024-08-23 17:53] LABS: ALT (SGPT) 41 U/L (0-35); AST (SGOT) 48 U/L (14-36); Albumin 4.5 g/dl (3.5-5.0); Alkaline Phosphatase 105 U/L (38-126); Blood Urea Nitrogen 13 mg/dl (7-17); Carbon Dioxide 26 mmol/L (22-30); Chloride 98 mmol/L (98-107); Glucose 104 mg/dl (70-99); Potassium 4.3 mmol/L (3.5-5.1); Sodium 134 mmol/L (135-145); Total Bilirubin 1.4 mg/dl (0.2-1.3); Total Protein 7.5 g/dl (6.3-8.2); eGFR > 60.00
[2024-08-23 17:56] LABS: COVID-19 Antigen Negative (Negative)
--- NOTE | 2024-08-23 20:54 | ED.GENMED ---
History of Present Illness
General
Chief Complaint: Headache
Source: patient
Exam Limitations: none
Time Seen by Provider: 08/23/24 20:25
History of Present Illness
History of Present Illness:
This is a 34 year old female that comes in with c/o headache and fever. States that she had a migraine since [place]. States that it would get better but was just dull. States that yesterday she awoke with a fever. States that it was 101.3.
States that she was also a little nauseated and felt lightheaded. State that she took Tylenol at 3pm. Denies any chills, chest pain, SOB, abd pain, vomiting, diarrhea, urinary burning.
Past History
Past History
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
Neurogenic bladder)
ED Past Surgical History: Orthopedic (Left ankle surgery), Tonsilectomy and Other (Iliac stent left)
Social History
Tobacco: Non-smoker
Alcohol: Occasional
Drug: None
Personal: Single
Living: with family
Employment: Employed
Family History
Family History: Other (Noncontributory)
Review of Systems
Review of Systems
All Other Systems: ROS reviewed and negative except as documented in HPI and ROS
Constitutional: Reports fever; Denies chills
EENT: Reports no symptoms
Respiratory: Reports no symptoms; Denies cough or trouble breathing
Cardiac: Reports no symptoms; Denies chest pain
ABD/GI: Reports nausea; Denies abdominal pain, vomiting or diarrhea
: Reports no symptoms; Denies dysuria, frequency or urgency
Musculoskeletal: Reports no symptoms
Skin: Reports no symptoms
Neurological: Reports headache and other (Lightheaded); Denies dizzy
Psychiatric: Reports no symptoms
Phy Exam
General Physical Exam
General Presentation: well appearing and no apparent distress
General age: appears stated age
General Skin: warm and dry
General Habitus: normal
General Mental: alert
General Hydration: appears well hydrated
ENT Exam
ENT Exam: TM's normal, pharynx normal and neck supple
Eye Exam
Eye Exam: EOMI
Cardiovascular Exam
Cardiovascular Exam: regular rate/rhythm, no edema, no murmur and normal peripheral pulses
Pulmonary Exam
Pulmonary Exam: lungs clear, no respiratory distress, no rales, chest non tender, no crackles, no rhonchi, no wheezing and no cough
Gastrointestinal Exam
Gastrointestinal Exam: normal bowel sounds, non tender, soft, no organomegaly, no pulsatile mass and non distended
Musculoskeletal Exam
Musculoskeletal Exam: full ROM, no edema and other (Negative Kernigs)
Skin Exam
Skin Exam: normal color, warm/dry, no rash and no petechia
Psychiatric Exam
Psychiatric Exam: normal mood/affect
Course
Orders/Labs/Results
Orders:
Orders
08/23/24 17:12
Test Result ONCE
08/23/24 17:27
COVID-19 Antigen Urgent
Source: Nasal Swab
Complete Blood Count/With Diff Urgent
Comprehensive Metabolic Panel Urgent
HCG, Serum Qualitative Screen Urgent
Influenza A+B Rapid Molecular Urgent
[place] Source: Nasal Swab
Specimen Description:
08/23/24 20:53
0.9% Sodium Chloride 1000 ml [Nss] 1,000 ml IV BOLUS
Acetaminophen [Tylenol] 1,000 mg PO NOW STA
Ketorolac [Toradol] 30 mg IV NOW STA
08/23/24 20:54
Ondansetron Injectable [Zofran] 4 mg IV NOW STA
08/23/24 20:58
Urinalysis Reflex To Culture Urgent
Date Specimen was Collected: 08/23/24
Time Specimen was Collected: 21:00
08/23/24 23:03
Diphenhydramine [Benadryl] 25 mg IV NOW STA
Abnormal Lab Results
08/23/24
17:27
Abs Immat Gran (auto) 0.1 H 10^3/uL
(0-0.05)
Absolute Neuts (auto) 7.2 H 10^3/uL
(1.4-6.5)
Absolute Monos (auto) 1.1 H 10^3/uL
(0.1-0.6)
Lymphocytes % 15.5 L %
(20.5-51.1)
Monocytes % 10.6 H %
(1.7-9.3)
Sodium 134 L mmol/L
(135-145)
Glucose 104 H mg/dl
(70-99)
Total Bilirubin 1.4 H mg/dl
(0.2-1.3)
AST 48 H U/L
(14-36)
ALT 41 H U/L
(0-35)
08/23/24 17:27
08/23/24 17:27
Sodium very slightly low. Glucose nonfasting. AST/ALT every slightly elevated. HCG negative. COVID and Influenza negative.
Vital Signs
Initial and Last Documented VS:
Initial Vital Signs
Temp Pulse Resp BP Pulse Ox
100.6 F H 133 18 126/81 99
08/23/24 17:10 08/23/24 17:10 08/23/24 17:10 08/23/24 17:10 08/23/24 17:10
Last Documented Vital Signs
Temp Pulse Resp BP Pulse Ox
100.6 F H 80 18 99/87 95
08/23/24 17:10 08/23/24 22:52 08/23/24 17:10 08/23/24 22:00 08/23/24 22:45
MDM/Problems Addressed
Differential Diagnosis Includes:
Viral syndrome,
MDM/Problems Addressed:
This is a 34 year old female that comes in with c/o headache and a fever. States that she has had a migraine since [place]. States that it does get dull. Then yesterday she started with a fever.
Will check labs, COVID, Influenza, Urine, Give IV fluids and medicate with Toradol and Tylenol
Back into see patient. Patient states that she still feels the same. Explained that this is most likely viral. Patient to use Tylenol and her migraine medication. Patient is already on a steroid. Patient to increase her water intake to 8-8oz
glasses daily. Patient to follow up with the family doctor. Return with any concerns.
Chronic conditions affecting care: DM
Acute Exacerbation and/or Progression of Chronic Illness:
NA
*Pulse Oximetry
Patient hypoxic: no
*EKG
Interpreted by ED Provider?: NA
Rate: EKG- N/A
*Lettuce Cutter Interpretation
Rate: Lettuce Cutter- N/A
*Critical Care Note
Total Time (30-74mins, 75-104mins- exclusive of procedures): Not Applicable
ED Attending Note
-
Portions of this chart may have been created with voice recognition software.� Occasional wrong word or��sound alike� substitutions may have occurred due to the inherent limitations of voice recognition software.
Discharge Plan
Departure
Patient Disposition: Home (Routine Discharge)
Date of Disposition: 08/23/24
Time of Disposition: 23:10
Patient with high blood pressure during this ER visit?: No
Condition: Good
Covid-19: Negative COVID-19
Discharge Problem:
Migraine, Acute viral syndrome
Instructions: Migraines (DC)
Prescriptions:
No Action
gabapentin 600 mg Tablet
600 mg PO TID
famotidine 40 mg Tablet
40 mg PO HS
midodrine 5 mg Tablet
7.5 mg PO BID
olanzapine 10 mg Tablet
10 mg PO DIRECTED PRN (Reason: headache resolution)
Rx Instructions:
pt. instructed to take 0.5 tablet for 4 nights and then increase to 1.5 tablets as needed for headache resolution.
clopidogrel 75 mg Tablet
75 mg PO NOON
omeprazole 40 mg Capsule,Delayed Release(Dr/Ec)
40 mg PO DAILY
Patient Comments:
06/07/24: Patient mixes with something like apple sauce
acetaminophen [Tylenol Extra Strength] 500 mg Tablet
1,000 mg PO DAILYPRN PRN (Reason: mild pain)
ondansetron 8 mg Tablet,Disintegrating
8 mg PO Q8HPRN PRN (Reason: nausea/vomiting)
escitalopram oxalate 20 mg Tablet
20 mg PO DAILY
aripiprazole 15 mg Tablet
15 mg PO DAILY
insulin glargine [Lantus Solostar U-100 Insulin] 100 unit/mL (3 mL) Insulin Pen
10 unit SC HS
Xarelto 20 mg Tablet
20 mg PO NOON
pindolol 5 mg Tablet
5 mg PO NOON
prednisone 5 mg Tablet
5 mg PO NOON
cyanocobalamin (vitamin B-12) 1,000 mcg Tablet
1,000 mcg PO DAILY
ascorbic acid (vitamin C) [Vitamin C] 500 mg Tablet
500 mg PO DAILY
ferrous sulfate 325 mg (65 mg iron) Tablet
325 mg PO DAILY
diphenhydramine HCl 12.5 mg/5 mL Elixir
12.5 mg PO Q4HPRN PRN (Reason: nausea)
lorazepam 1 mg Tablet
1 mg PO BIDPRN PRN (Reason: anxiety)
insulin lispro [Humalog U-100 Insulin] 100 unit/mL Solution
1 sliding scale dose SC AC
azathioprine 100 mg Tablet
100 mg PO HS
azrcpwi-rtygcswqb-vvcf 333-133-5 mg Tablet
3 tab PO HS
Centrum Silver Women 8 mg iron-400 mcg-50 mcg Tablet
1 tab PO NOON
cholecalciferol (vitamin D3) 1,250 mcg (50,000 unit) Tablet
1,250 mcg PO FR
Qulipta 60 mg Tablet
60 mg PO DAILY
fluticasone propion-salmeterol [Advair HFA] 230-21 mcg/actuation Hfa Aerosol Inhaler
1 puff INHALATION DAILYPRN PRN (Reason: sob)
Referrals:
Brennon Pierce MD [Family Provider] - Call in 1-3 days for appt
Activity Restrictions/Additional Instructions:
As discussed, your blood work shows that your Liver enzymes are very slightly elevated. You are negative for COVID and Influenza. This is most likely a viral illness. Please increase your water intake to 8-8oz glasses daily. Use Tylenol 1000mg very
6 hour for headache pain. Follow up with the family doctor for recheck. IF YOU HAVE ANY OTHER CONCERNS PLEASE RETURN TO THE EMERGENCY ROOM.
Interventions
Interventions:
*Risk Screen - Suicide Last Done: 08/23/24 21:07
*General Assessment Last Done: 08/23/24 21:07
*Neglect/Abuse Screening Last Done: 08/23/24 21:07
*ED COVID-19 Vaccine History Last Done: 08/23/24 21:07
ED- Neurological Assessment Last Done: 08/23/24 21:08
Discharge Date and Time
Print Language: GABONESE
[2024-08-23] MEDS: TYLENOL 1000 MG PO (20:59)
[2024-08-23] MEDS: NSS 1000 IV (20:59)
[2024-08-23] MEDS: TORADOL 30 MG IV (20:59)
[2024-08-23] MEDS: ZOFRAN 4 MG IV (20:59)
[2024-08-23 21:04] VITALS: BP 131/79
[2024-08-23 22:00] VITALS: BP 99/87
[2024-08-23 23:00] VITALS: BP 112/71
== END 2024-08-23 23:15 | disposition home or self-care (01) ==
LOC: EMR 17:00
PROVIDERS: EMERGENCY PHYSICIAN Emergency Medicine; FAMILY PHYSICIAN Family Medicine
DX: G43.909 Migraine, unspecified, not intractable, without status migrainosus (principal); B34.9 Viral infection, unspecified; J45.909 Unspecified asthma, uncomplicated; E11.43 Type 2 diabetes mellitus with diabetic autonomic (poly)neuropathy; Z79.4 Long term (current) use of insulin; I69.951 Hemiplegia and hemiparesis following unspecified cerebrovascular disease affecting right dominant side; Z86.718 Personal history of other venous thrombosis and embolism
CPT/HCPCS: 96374; 96375; 96361; 99284; 80053; 84703; 85025; 87502; 87811

== ENCOUNTER 2024-09-23 17:52 | Outpatient (RCR) | payer OTHER, SELFPAY | END 2024-09-23 23:59 | disposition home or self-care (01) | LOC: RPT 17:52 | PROVIDERS: ATTENDING PHYSICIAN Student in an Organized Health Care Education/Training Program; FAMILY PHYSICIAN Family Medicine | DX: M25.572 Pain in left ankle and joints of left foot (principal); S86.112D Strain of other muscle(s) and tendon(s) of posterior muscle group at lower leg level, left leg, subsequent encounter; Z73.6 Limitation of activities due to disability | CPT/HCPCS: 97010; 97110; 97162 ==

== ENCOUNTER 2024-09-30 18:18 | Outpatient (RCR) | payer OTHER, SELFPAY | END 2024-10-19 12:01 | disposition home or self-care (01) | LOC: RPT 18:18 | PROVIDERS: ATTENDING PHYSICIAN Student in an Organized Health Care Education/Training Program; FAMILY PHYSICIAN Family Medicine | DX: M25.572 Pain in left ankle and joints of left foot (principal); S86.112D Strain of other muscle(s) and tendon(s) of posterior muscle group at lower leg level, left leg, subsequent encounter; Z73.6 Limitation of activities due to disability | CPT/HCPCS: 97010; 97110 ==

== ENCOUNTER → 2024-11-13 06:22 | Outpatient (REF) | payer OTHER, SELFPAY | LOC: MRI 06:22 | PROVIDERS: ATTENDING PHYSICIAN Student in an Organized Health Care Education/Training Program; FAMILY PHYSICIAN Family Medicine | DX: M54.16 Radiculopathy, lumbar region (principal) | CPT/HCPCS: 72148 ==

== ENCOUNTER → 2024-12-20 08:26 | Outpatient (REF) | payer OTHER, SELFPAY | LOC: RAD 08:26 | PROVIDERS: ATTENDING PHYSICIAN Family Medicine | DX: M85.80 Other specified disorders of bone density and structure, unspecified site (principal); I87.1 Compression of vein; Z86.718 Personal history of other venous thrombosis and embolism; Z86.711 Personal history of pulmonary embolism; M79.89 Other specified soft tissue disorders | CPT/HCPCS: 77080; 93970 ==

== ENCOUNTER 2025-01-04 13:41 | Emergency (ER) | payer OTHER, SELFPAY ==
[2025-01-04 13:57] VITALS: BP 143/90
[2025-01-04 14:19] LABS: % Basophils 0.3 % (0-2); % Eosinophils 1.2 % (0-6); % Immature Granulocytes 0.3 % (0-0.5); % Monocytes 7.4 % (1.7-9.3); % Neutrophils 60.8 % (42.2-75.2); Absolute Eosinophils 0.1 10^3/uL (0-0.7); Absolute Lymphocytes 3.5 10^3/uL (1.2-3.4); Absolute Monocytes 0.9 10^3/uL (0.1-0.6); Absolute Neutrophils 7.2 10^3/uL (1.4-6.5); Hematocrit 43.7 % (37.0-47.0); Hemoglobin 14.9 g/dL (12.0-16.0); Mean Corp Hgb Conc. 34.1 g/dL (33.0-37.0); Mean Corpuscular Hgb 28.3 pg (27.0-31.0); Mean Corpuscular Volume 83.1 fL (81.0-99.0); Mean Platelet Volume 9.5 fL (7.4-10.4); Nucleated Red Blood Cells % 0 %; Platelet Count 348 10^3/uL (130-400); Red Blood Cell Count 5.26 10^6/uL (4.20-5.40); Red Cell Dist. Width 12.6 % (11.5-14.5); White Blood Cell Count 11.8 10^3/uL (4.8-10.8)
[2025-01-04 14:31] LABS: ALT (SGPT) 19 U/L (0-35); AST (SGOT) 20 U/L (14-36); Albumin 4.8 g/dl (3.5-5.0); Alkaline Phosphatase 98 U/L (38-126); Blood Urea Nitrogen 16 mg/dl (7-17); Calcium 9.8 mg/dl (8.4-10.2); Carbon Dioxide 26 mmol/L (22-30); Chloride 109 mmol/L (98-107); Glucose 102 mg/dl (70-99); Potassium 4.2 mmol/L (3.5-5.1); Sodium 140 mmol/L (135-145); Total Bilirubin 1.2 mg/dl (0.2-1.3); Total Protein 8.1 g/dl (6.3-8.2); eGFR > 60.00
--- NOTE | 2025-01-04 18:42 | ED.GENMED ---
History of Present Illness
General
Chief Complaint: Headache
Source: patient
Exam Limitations: none
Time Seen by Provider: 01/04/25 18:40
Nursing documentation reviewed up to this point in time: agreed with
History of Present Illness
History of Present Illness:
34-year-old female presents emergency room due to migraine for the past couple days. She had an episode where she passed out today. She reports low blood pressure earlier.
Past History
Past History
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
Neurogenic bladder)
ED Past Surgical History: Orthopedic (Left ankle surgery), Tonsilectomy and Other (Iliac stent left)
Social History
Tobacco: Non-smoker
Alcohol: Occasional
Drug: None
Personal: Single
Living: with family
Employment: Employed
Family History
Family History: Other (Noncontributory)
Review of Systems
Review of Systems
Allergies reviewed?: Yes
All Other Systems: Not applicable
Constitutional: Reports no symptoms
EENT: Reports no symptoms
Respiratory: Reports no symptoms
Cardiac: Reports syncope
ABD/GI: Reports nausea and vomiting
: Reports no symptoms
Musculoskeletal: Reports no symptoms
Skin: Reports no symptoms
Neurological: Reports headache
Endocrine: Reports no symptoms
Hematologic/Lymphatic: Reports no symptoms
Psychiatric: Reports no symptoms
Phy Exam
Physical Exam
Physical Exam:
Physical Exam
General: no apparent distress, not acutely ill
Neck: supple. no meningeal signs. normal posterior pharynx
Heart: s1/s2 regular rate and rhythm, no murmur. equal radial
pulses.
HEENT: Pupils equal round reactive to light, EOMI
Lungs: no acute respiratory distress. clear bilaterally
Abdomen: normal bowel sounds. not tender. no CVAT
Neuro: alert and oriented. no focal neurological deficits cranial nerves II through XII intact
Skin: no rash
Psychiatric: well kept. interactive and cooperative
Extremities: no edema. no calf tenderness. negative homans. good distal pulses
Course
Orders/Labs/Results
Orders:
Orders
01/04/25 13:59
Electrocardiogram (*1) Urgent
Reason for Study: Syncope
01/04/25 14:00
EKG- Treatment ONCE
01/04/25 14:07
Complete Blood Count/With Diff Urgent
Comprehensive Metabolic Panel Urgent
01/04/25 18:53
IV Insert/Care/Rem.- Treatment PRN
Dexamethasone Sod Phosphate [Decadron] 10 mg IV NOW STA
Diphenhydramine [Benadryl] 25 mg IV NOW STA
Metoclopramide [Reglan] 10 mg IV NOW STA
01/04/25 18:55
EKG- Treatment ONCE
Lactated Ringers [Lr] 1,000 ml IV BOLUS
01/04/25 20:10
Magnesium Sulfate 2 Gram/50 ml [Magnesium Sulfate] 2 gram in 50 ml IV NOW
01/04/25 22:31
Diphenhydramine [Benadryl] 25 mg IV NOW STA
Prochlorperazine [Compazine] 10 mg IV NOW STA
Abnormal Lab Results
01/04/25
14:07
WBC 11.8 H 10^3/uL
(4.8-10.8)
Absolute Neuts (auto) 7.2 H 10^3/uL
(1.4-6.5)
Absolute Lymphs (auto) 3.5 H 10^3/uL
(1.2-3.4)
Absolute Monos (auto) 0.9 H 10^3/uL
(0.1-0.6)
Chloride 109 H mmol/L
(98-107)
Glucose 102 H mg/dl
(70-99)
01/04/25 14:07
01/04/25 14:07
Vital Signs
Initial and Last Documented VS:
Initial Vital Signs
Temp Pulse Resp BP Pulse Ox
98.1 F 100 16 143/90 98
01/04/25 13:57 01/04/25 13:57 01/04/25 13:57 01/04/25 13:57 01/04/25 13:57
Last Documented Vital Signs
Temp Pulse Resp BP Pulse Ox
98.1 F 80 16 109/76 100
01/04/25 13:57 01/04/25 21:08 01/04/25 21:08 01/04/25 21:08 01/04/25 21:08
MDM/Problems Addressed
Differential Diagnosis Includes:
Migraine, dysrhythmia
MDM/Problems Addressed:
34-year-old female with migraine, improved after Benadryl, Compazine, Reglan. Stable for discharge.
Chronic conditions affecting care: Asthma and Other (Migraines, POTS, CVA, PE, PE)
*Pulse Oximetry
Patient hypoxic: no
*EKG
Interpreted by ED Provider?: Yes
EKG Intrepretation Date: 01/04/25
EKG Intrepretation Time: 14:09
Interpretation: abnormal
Comparison EKG: no changes
Heart Rate: 83
Rate: normal
Rhythm: sinus
Cincinnatus: normal axis
Interval: short [place]
QRS Pattern: normal QRS
Ischemia: no ischemia
*Software Design Engineer Interpretation
Rate: normal
Interpretation: normal
Heart Rate: 84
Rhythm: sinus
*Critical Care Note
Total Time (30-74mins, 75-104mins- exclusive of procedures): Not Applicable
Patient Management
Social determinants of health affecting care: Living situation and Strong social support
Escalation/DeEscalation of care consider admission/obs:
admit not indicated
ED Attending Note
-
Portions of this chart may have been created with voice recognition software.� Occasional wrong word or��sound alike� substitutions may have occurred due to the inherent limitations of voice recognition software.
Discharge Plan
Departure
Patient Disposition: Home (Routine Discharge)
Date of Disposition: 01/04/25
Time of Disposition: 22:52
Patient with high blood pressure during this ER visit?: No
Condition: Good
Discharge Problem:
Migraine, Syncope
Instructions: Syncope (fainting), Migraines (DC)
Prescriptions:
No Action
gabapentin 600 mg Tablet
600 mg PO TID
famotidine 40 mg Tablet
40 mg PO HS
midodrine 5 mg Tablet
7.5 mg PO BID
olanzapine 10 mg Tablet
10 mg PO DIRECTED PRN (Reason: headache resolution)
Rx Instructions:
pt. instructed to take 0.5 tablet for 4 nights and then increase to 1.5 tablets as needed for headache resolution.
clopidogrel 75 mg Tablet
75 mg PO NOON
omeprazole 40 mg Capsule,Delayed Release(Dr/Ec)
40 mg PO DAILY
Patient Comments:
06/07/24: Patient mixes with something like apple sauce
acetaminophen [Tylenol Extra Strength] 500 mg Tablet
1,000 mg PO DAILYPRN PRN (Reason: mild pain)
ondansetron 8 mg Tablet,Disintegrating
8 mg PO Q8HPRN PRN (Reason: nausea/vomiting)
escitalopram oxalate 20 mg Tablet
20 mg PO DAILY
aripiprazole 15 mg Tablet
15 mg PO DAILY
insulin glargine [Lantus Solostar U-100 Insulin] 100 unit/mL (3 mL) Insulin Pen
10 unit SC HS
Xarelto 20 mg Tablet
20 mg PO NOON
pindolol 5 mg Tablet
5 mg PO NOON
prednisone 5 mg Tablet
5 mg PO NOON
cyanocobalamin (vitamin B-12) 1,000 mcg Tablet
1,000 mcg PO DAILY
ascorbic acid (vitamin C) [Vitamin C] 500 mg Tablet
500 mg PO DAILY
ferrous sulfate 325 mg (65 mg iron) Tablet
325 mg PO DAILY
diphenhydramine HCl 12.5 mg/5 mL Elixir
12.5 mg PO Q4HPRN PRN (Reason: nausea)
lorazepam 1 mg Tablet
1 mg PO BIDPRN PRN (Reason: anxiety)
insulin lispro [Humalog U-100 Insulin] 100 unit/mL Solution
1 sliding scale dose SC AC
azathioprine 100 mg Tablet
100 mg PO HS
vhoqokn-vplpvmgti-xbup 333-133-5 mg Tablet
3 tab PO HS
Centrum Silver Women 8 mg iron-400 mcg-50 mcg Tablet
1 tab PO NOON
cholecalciferol (vitamin D3) 1,250 mcg (50,000 unit) Tablet
1,250 mcg PO FR
Qulipta 60 mg Tablet
60 mg PO DAILY
fluticasone propion-salmeterol [Advair HFA] 230-21 mcg/actuation Hfa Aerosol Inhaler
1 puff INHALATION DAILYPRN PRN (Reason: sob)
Referrals:
Brennon Pierce MD [Family Provider] -
Interventions
Interventions:
*Risk Screen - Suicide Last Done: 01/04/25 13:57
*General Assessment Last Done: 01/04/25 13:57
*Neglect/Abuse Screening Last Done: 01/04/25 13:57
*ED COVID-19 Vaccine History Last Done: 01/04/25 13:57
ED- Neurological Assessment Last Done: 01/04/25 19:02
Discharge Date and Time
Print Language: THAI
[2025-01-04 19:06] VITALS: BP 128/83
[2025-01-04] MEDS: REGLAN 10 MG IV (19:12)
[2025-01-04] MEDS: LR 1000 IV (19:12)
[2025-01-04] MEDS: BENADRYL 25 MG IV ×2 (19:12→22:36)
[2025-01-04] MEDS: DECADRON 10 MG IV (19:12)
[2025-01-04] MEDS: MAGNESIUM SULFATE 50 IV (20:38)
[2025-01-04 21:08] VITALS: BP 109/76
[2025-01-04] MEDS: COMPAZINE 10 MG IV (22:36)
[2025-01-04 23:09] VITALS: BP 115/80
== END 2025-01-04 23:10 | disposition home or self-care (01) ==
LOC: EMR 13:41
PROVIDERS: Student in an Organized Health Care Education/Training Program; EMERGENCY PHYSICIAN Emergency Medicine; FAMILY PHYSICIAN Family Medicine
DX: G43.909 Migraine, unspecified, not intractable, without status migrainosus (principal); R55 Syncope and collapse; J45.909 Unspecified asthma, uncomplicated; E11.9 Type 2 diabetes mellitus without complications; Z79.4 Long term (current) use of insulin; Z86.73 Personal history of transient ischemic attack (TIA), and cerebral infarction without residual deficits; Z87.442 Personal history of urinary calculi
CPT/HCPCS: 96374; 96375; 96376; 96361; 99284; 80053; 85025; 93005

== ENCOUNTER 2025-02-07 08:48 | Outpatient (RCR) | payer OTHER, SELFPAY | END 2025-02-07 23:59 | disposition home or self-care (01) | LOC: RPT 08:48 | PROVIDERS: ATTENDING PHYSICIAN Family Medicine; FAMILY PHYSICIAN Student in an Organized Health Care Education/Training Program | DX: I89.0 Lymphedema, not elsewhere classified (principal); Z73.6 Limitation of activities due to disability | CPT/HCPCS: 97110; 97140; 97163; 97530 ==

== ENCOUNTER 2025-02-20 21:12 | Emergency (ER) | payer OTHER, SELFPAY ==
[2025-02-20 21:18] VITALS: BP 129/94
[2025-02-20 21:34] LABS: % Basophils 0.4 % (0-2); % Eosinophils 1.9 % (0-6); % Immature Granulocytes 0.4 % (0-0.5); % Lymphocytes 32.8 % (20.5-51.1); % Monocytes 8.8 % (1.7-9.3); % Neutrophils 55.7 % (42.2-75.2); Absolute Eosinophils 0.2 10^3/uL (0-0.7); Absolute Lymphocytes 3.5 10^3/uL (1.2-3.4); Absolute Monocytes 0.9 10^3/uL (0.1-0.6); Absolute Neutrophils 5.9 10^3/uL (1.4-6.5); Hematocrit 40.7 % (37.0-47.0); Hemoglobin 14.1 g/dL (12.0-16.0); Mean Corp Hgb Conc. 34.6 g/dL (33.0-37.0); Mean Corpuscular Hgb 28.9 pg (27.0-31.0); Mean Corpuscular Volume 83.4 fL (81.0-99.0); Mean Platelet Volume 9.3 fL (7.4-10.4); Nucleated Red Blood Cells % 0 %; Platelet Count 328 10^3/uL (130-400); Red Blood Cell Count 4.88 10^6/uL (4.20-5.40); Red Cell Dist. Width 12.8 % (11.5-14.5); White Blood Cell Count 10.6 10^3/uL (4.8-10.8)
[2025-02-20 21:54] LABS: HCG, Serum Qualitative Screen Negative
[2025-02-20 21:58] LABS: ALT (SGPT) 19 U/L (0-35); AST (SGOT) 22 U/L (14-36); Albumin 4.5 g/dl (3.5-5.0); Alkaline Phosphatase 94 U/L (38-126); Blood Urea Nitrogen 18 mg/dl (7-17); Calcium 9.5 mg/dl (8.4-10.2); Carbon Dioxide 25 mmol/L (22-30); Chloride 107 mmol/L (98-107); Glucose 99 mg/dl (70-99); Potassium 3.9 mmol/L (3.5-5.1); Sodium 140 mmol/L (135-145); Total Bilirubin 1.1 mg/dl (0.2-1.3); Total Protein 7.6 g/dl (6.3-8.2); eGFR > 60.00
[2025-02-20 22:08] LABS: Troponin I < 0.012 ng/ml
[2025-02-20 23:24] VITALS: BP 106/64
[2025-02-20 23:36] VITALS: BMI 36.2
--- NOTE | 2025-02-20 23:41 | EDRN ---
At 2030 pt developed chest pain going into L breast/shoulder worse when lying down. Pain intermittent described 'like my heart is skipping a beat and then someone is punching it.' Sob when pain occurs. No known provocation for pain. Hx similar
pain in 2020 diagnosed with MVP. Pt says this is not the same type of pain she gets with her autoimmune flare ups. No fever/chills/cough, n/v, abd pain, urinary symptoms, weakness. Pt feels 'a little lightheaded.' Pt did not take any medication
for pain.
[2025-02-21] VITALS: BP 115/65
--- NOTE | 2025-02-21 00:36 | ED.GENMED ---
History of Present Illness
General
Chief Complaint: Chest Pain
Source: patient
Exam Limitations: none
Time Seen by Provider: 02/21/25 00:01
Nursing documentation reviewed up to this point in time: agreed with
History of Present Illness
History of Present Illness:
Patient is a 34-year-old female with history POTS, mitral valve prolapse, history DVT/PE on Xarelto, diabetes who presents to the emergency department with chest pain that started on 8:30 PM. Patient states she was lying in bed when she started to
feel palpitations followed by pain in her left chest. She denies any exertional component to the symptoms. She reports associated shortness of breath and pain with deep inspiration. No radiation of pain into back.
She denies any fevers or chills. No recent viral infection or cough. No lower extremity swelling or pain worse than her baseline (she has lymphedema in left lower leg). She has no known inciting trauma or injury.
Patient reports compliance to her Xarelto and Plavix.
Past History
Past History
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
Neurogenic bladder)
ED Past Surgical History: Orthopedic (Left ankle surgery), Tonsilectomy and Other (Iliac stent left)
Social History
Tobacco: Non-smoker
Alcohol: Occasional
Drug: None
Personal: Single
Living: with family
Employment: Employed
Family History
Family History: Other (Noncontributory)
Review of Systems
Review of Systems
Allergies reviewed?: Yes
All Other Systems: ROS reviewed and negative except as documented in HPI and ROS
Phy Exam
Physical Exam
Physical Exam:
Vitals: Mildly tachycardic on arrival. Otherwise vital signs stable. Afebrile
General: Patient is well appearing, no acute distress. Nontoxic appearing
Skin: Warm and dry, no rashes or lesions
Head: Normocephalic, atraumatic
Eyes: Sclera nonicteric.
Throat: Protecting airway
Neck: Normal ROM, no cervical spine tenderness, no meningismus. No JVD
Cardiac: Regular rate and rhythm, no murmurs. No reproducible chest wall tenderness. No rash
Pulm: Normal respiratory effort, no wheezes, rales, rhonchi heard on exam
.
Abdomen: No abdominal tenderness.
Extremities: Nonpitting edema of left lower extremity without erythema or tenderness. No edema of right lower extremity. DP pulses palpable bilaterally
Neuro: AAOx3. Grossly intact.
Psychiatric: Normal affect.
Scores
Heart Score for Chest Pain Patients
STEMI patient?: No
History: Slightly or Non-Suspicious
ECG: Normal
Age: </= 45 years
Risk Factors: 1 or 2 Risk Factors
Troponin: </= Normal Limit
Heart Score for Chest Pain Patients: 1
Heart Score Risk: 2.5% MACE over next 6 weeks
Course
Orders/Labs/Results
Orders:
Orders
02/20/25 21:15
EKG [Electrocardiogram (*1)] Urgent
Reason for Study: Chest Pain
EKG- Treatment ONCE
02/20/25 21:18
Cardiac Monitoring- Treatment ONCE
Test Result ONCE
O2 Therapy [RESP] Urgent
Titrate/Wean O2 to maintain O2 sat greater than (%): 90
Special Instructions: Maintain sats >/=90%
Pulse Ox/spot Check [RESP] Urgent
Quantity: 1
Special Instructions: ON ROOM AIR
02/20/25 21:25
Complete Blood Count/With Diff Urgent
Comprehensive Metabolic Panel Urgent
HCG, Serum Qualitative Screen Urgent
Comment: Notify provider if positive test present
TSH Reflex To Free T4 Urgent
Comment: ADD ON
Troponin I Urgent
02/21/25 00:16
EKG- Treatment ONCE
02/21/25 00:17
CT Chest PE Study Urgent
Comment: hx PE
Reason For Exam: Chest pain, SOB, tachycardia
02/21/25 00:18
Add On- LAB Urgent
Tests Added?: TSH w/ reflex to T4
02/21/25 00:23
Troponin I Urgent
02/21/25 00:30
Electrocardiogram (*1) Urgent
Reason for Study: Chest Pain
Abnormal Lab Results
02/20/25
21:25
Absolute Lymphs (auto) 3.5 H 10^3/uL
(1.2-3.4)
Absolute Monos (auto) 0.9 H 10^3/uL
(0.1-0.6)
BUN 18 H mg/dl
(7-17)
02/20/25 21:25
02/20/25 21:25
Vital Signs
Initial and Last Documented VS:
Initial Vital Signs
Temp Pulse Resp BP Pulse Ox
99.0 F 102 18 129/94 98
02/20/25 21:18 02/20/25 21:18 02/20/25 21:18 02/20/25 21:18 02/20/25 21:18
Last Documented Vital Signs
Temp Pulse Resp BP Pulse Ox
99.0 F 83 12 113/74 100
02/20/25 21:18 02/21/25 03:01 02/21/25 03:01 02/21/25 03:00 02/21/25 03:01
MDM/Problems Addressed
Differential Diagnosis Includes:
Not limited to: Muscle strain, GERD, hyperthyroid, cardiac arrhythmia, pulmonary embolism, pericarditis, myocarditis, acute coronary syndrome, etc.
MDM/Problems Addressed:
34-year-old female with history as documented presenting with palpitations associated with chest discomfort and mild shortness of breath around 8 PM this evening. The symptoms were not exertional in nature however she does report some worsening
with deep inspiration. No tearing back pain. No recent viral illness or fever/cough. She has history of PE/DVT however is compliant with Xarelto. Patient mildly tachycardic on arrival, otherwise stable vital signs. Physical exam as above.
Patient appears well in no distress. Cardio/pulmonary assessment unremarkable she has palpable and equal peripheral pulses bilaterally. No atypical lower extremity swelling. EKG reveals sinus tachycardia with heart rate of 101 bpm. Basic labs
were sent prior to my evaluation. CBC without clinically significant abnormalities, CMP unremarkable. Initial troponin undetectable. Differential broad at this time. However�given patient's past medical history and presenting symptoms�will
obtain CTA chest to rule out pulmonary embolism or other acute abnormalities in the chest. Will check TSH and trend troponin.
Update: Repeat troponin undetectable with nonischemic EKG. TSH within normal limits. CTA chest without evidence of pulmonary embolism, dissection, or other acute abnormalities of chest. On reassessment�patient's vital signs have normalized. She
appears in no distress and only has mild pain and states that she has some degree of pain at baseline. Ultimately�workup in emergency department negative. She has remained hemodynamically stable. Very low suspicion for acute cardiac/pulmonary
process today. Feel stable for discharge home with very strict return precautions. Advise close follow-up with primary care/cardiology for further evaluation/management. Patient comfortable to plan and expressed verbal understanding
Chronic conditions affecting care:
History of PE/DVT on Xarelto, mitral valve prolapse, POTS
Acute Exacerbation and/or Progression of Chronic Illness:
N/A
*Radiology
Radiology exam reviewed: radiology read reviewed
*Pulse Oximetry
SaO2: 97
Oxygen Mode of Delivery: Room air
Patient hypoxic: no
*EKG
Interpreted by ED Provider?: Yes
EKG Intrepretation Date: 02/21/25
Interpretation: abnormal
Comparison EKG: no changes
Heart Rate: 101
Rate: tachycardiac
Rhythm: sinus
Gilead: normal axis
Interval: normal interval
QRS Pattern: normal QRS
Ischemia: no ischemia
*Caterers Helper Interpretation
Rate: tachycardiac
Interpretation: abnormal
Heart Rate: 108
Rhythm: sinus
*Critical Care Note
Total Time (30-74mins, 75-104mins- exclusive of procedures): Not Applicable
ED Attending Note
-
Portions of this chart may have been created with voice recognition software.� Occasional wrong word or��sound alike� substitutions may have occurred due to the inherent limitations of voice recognition software.
Discharge Plan
Departure
Patient Disposition: Home (Routine Discharge)
Date of Disposition: 02/21/25
Time of Disposition: 03:21
Patient with high blood pressure during this ER visit?: Yes
Condition: Good
Discharge Problem:
Palpitations, Chest pain
Instructions: Chest pain - Discharge instructions, Shortness of breath in adults - ED discharge instructions, Palpitations - ED discharge instructions
Prescriptions:
No Action
gabapentin 600 mg Tablet
600 mg PO TID
famotidine 40 mg Tablet
40 mg PO HS
midodrine 5 mg Tablet
7.5 mg PO BID
olanzapine 10 mg Tablet
10 mg PO DIRECTED PRN (Reason: headache resolution)
Rx Instructions:
pt. instructed to take 0.5 tablet for 4 nights and then increase to 1.5 tablets as needed for headache resolution.
clopidogrel 75 mg Tablet
75 mg PO NOON
omeprazole 40 mg Capsule,Delayed Release(Dr/Ec)
40 mg PO DAILY
Patient Comments:
06/07/24: Patient mixes with something like apple sauce
ondansetron 8 mg Tablet,Disintegrating
8 mg PO Q8HPRN PRN (Reason: nausea/vomiting)
escitalopram oxalate 20 mg Tablet
20 mg PO DAILY
aripiprazole 15 mg Tablet
15 mg PO DAILY
Xarelto 20 mg Tablet
20 mg PO NOON
pindolol 5 mg Tablet
5 mg PO NOON
prednisone 5 mg Tablet
5 mg PO NOON
cyanocobalamin (vitamin B-12) 1,000 mcg Tablet
1,000 mcg PO DAILY
ascorbic acid (vitamin C) [Vitamin C] 500 mg Tablet
500 mg PO DAILY
ferrous sulfate 325 mg (65 mg iron) Tablet
325 mg PO DAILY
diphenhydramine HCl 12.5 mg/5 mL Elixir
12.5 mg PO Q4HPRN PRN (Reason: nausea)
lorazepam 1 mg Tablet
1 mg PO BIDPRN PRN (Reason: anxiety)
azathioprine 100 mg Tablet
100 mg PO HS
wagjepk-zqxukijev-kfhq 333-133-5 mg Tablet
3 tab PO HS
Centrum Silver Women 8 mg iron-400 mcg-50 mcg Tablet
1 tab PO NOON
cholecalciferol (vitamin D3) 1,250 mcg (50,000 unit) Tablet
1,250 mcg PO FR
Qulipta 60 mg Tablet
60 mg PO DAILY
fluticasone propion-salmeterol [Advair HFA] 230-21 mcg/actuation Hfa Aerosol Inhaler
1 puff INHALATION DAILYPRN PRN (Reason: sob)
Referrals:
Brennon Pierce MD [Family Provider, Family Practice] - Follow up in 2-3 days
Activity Restrictions/Additional Instructions:
RETURN TO THE EMERGENCY DEPARTMENT WITH ANY CHEST PAIN, SHORTNESS OF BREATH, PERSISTENTLY ELEVATED HEART RATE, SEVERE BACK PAIN, NUMBNESS/TINGLING OR WEAKNESS IN EXTREMITIES, WORSENING OF CURRENT SYMPTOMS, OR ANY OTHER CONCERNS
- As discussed�your lab work and CT of your chest showed no acute abnormalities.
- Continue to take all your medications as prescribed.
- Follow-up with your electric relay tester/primary care for further evaluation/management to ensure that symptoms are improving
Monitor your symptoms closely and return to the emergency department with any acute worsening/new symptoms or any other concerns
Interventions
Interventions:
*Risk Screen - Suicide Last Done: 02/20/25 21:18
*General Assessment Last Done: 02/20/25 23:47
*Neglect/Abuse Screening Last Done: 02/20/25 21:18
*ED- Fall Risk Assessment Last Done: 02/20/25 23:47
*Nursing Disposition Last Done: 02/21/25 03:37
ED- Cardiac Assessment Last Done: 02/20/25 23:47
Discharge Date and Time
Discharge Date/Time: 02/21/25 03:37
Print Language: BELARUSIAN
[2025-02-21 01:00] VITALS: BP 101/66
[2025-02-21 01:03] LABS: Troponin I < 0.012 ng/ml
[2025-02-21 01:23] LABS: TSH Reflex To Free T4 1.45 uIU/ml (0.47-4.68)
[2025-02-21 03:00] VITALS: BP 113/74
== END 2025-02-21 03:37 | disposition home or self-care (01) ==
LOC: EMR 21:12
PROVIDERS: Emergency Medicine; Physician Assistant; EMERGENCY PHYSICIAN Emergency Medicine; FAMILY PHYSICIAN Family Medicine
DX: R00.2 Palpitations (principal); R07.9 Chest pain, unspecified; I10 Essential (primary) hypertension; E11.9 Type 2 diabetes mellitus without complications; Z86.711 Personal history of pulmonary embolism; Z86.73 Personal history of transient ischemic attack (TIA), and cerebral infarction without residual deficits; Z86.718 Personal history of other venous thrombosis and embolism; Z79.01 Long term (current) use of anticoagulants; Z79.4 Long term (current) use of insulin; J45.909 Unspecified asthma, uncomplicated; I34.1 Nonrheumatic mitral (valve) prolapse
CPT/HCPCS: 99284; 71275; 80053; 84443; 84484; 84703; 85025; 93005; Q9967